=== PATIENT | male | born 1965 | race Hispanic/Latino ===

== ENCOUNTER 2020-11-10 12:07 | Inpatient (IN) | payer MEDICAID, OTHER ==
[~2020-11-10] VITALS: Ht 180.3 cm; Wt 88.6 kg
[2020-11-10] MEDS ORDERED: ALBUTEROL INHALER 90MCG/INH IH ONE (12:37)
[2020-11-10] MEDS ORDERED: DEXAMETHASONE SOD PHOSPHATE 10MG/ML 1ML VIAL ONE (12:37)
[2020-11-10] MEDS ORDERED: LEVOFLOXACIN 750 MG/D5W 150 ML 150 ML ONE (12:37)
[2020-11-10] MEDS ORDERED: ASPIRIN 325 MG TABLET ONE (12:37)
[2020-11-10] MEDS ORDERED: AZITHROMYCIN 250 MG TABLET PO ONE (12:38)
[2020-11-10 12:39] LABS: BASOPHILS % (AUTO) 0.3 % (0.0-5.0); HEMATOCRIT 53.2 % (42-54); LYMPHOCYTES % (AUTO) 5.8 % (21.0-51.0); MEAN CORPUSCULAR HEMOGLOBIN 30.6 pg (27.0-33.0); MEAN CORPUSCULAR HGB CONC 32.5 g/dL (32.0-36.0); MEAN CORPUSCULAR VOLUME 94.2 fL (79-99); MONOCYTES % (AUTO) 4.4 % (3.0-13.0); NEUTROPHILS % (AUTO) 88.6 % (40.0-77.0); PLATELET COUNT (AUTO) 325 K/uL (130-400); RED BLOOD CELL COUNT(AUTO) 5.65 MIL/uL (4.50-6.20); RED CELL DISTRIBUTION WIDTH 12.5 % (11.0-15.5); WHITE BLOOD COUNT (AUTO) 14.4 K/uL (4.8-10.8)
[2020-11-10 12:43] LABS: ABG BASE EXCESS -9.2 mmol/L (-2.0-3.0); ABG HCO3 15.9 mmol/L (21.0-28.0); ABG OXYGEN SATURATION 67.3 % (95.0-99.0); ABG PCO2 33 mmHg (35-48)
[2020-11-10 12:56] LABS: INR 1.12 (0.85-1.15); PROTHROMBIN TIME 11.9 SEC (9.6-11.6)
[2020-11-10 12:57] LABS: PARTIAL THROMBOPLASTIN TIME 24.9 SEC (26.3-35.5)
[2020-11-10 13:08] LABS: ALBUMIN 2.6 g/dL (3.5-5.0); CREATININE 1.3 mg/dL (0.5-1.5); POTASSIUM 4.6 mmol/L (3.5-5.1); TOTAL PROTEIN, SERUM 7.6 g/dL (6.0-8.3)
[2020-11-10 13:29] LABS: B-TYPE NATRIURETIC PEPTIDE 10 pg/mL (0-100)
[2020-11-10] MEDS ORDERED: INSULIN HUMULIN R 100 UNIT/ML 3ML ONE ×3 (13:59→20:33)
[2020-11-10 14:15] LABS: APPEARANCE,URINE Clear (CLEAR); BILIRUBIN,URINE Negative (NEGATIVE); COLOR,URINE Yellow (YELLOW); GLUCOSE, URINE (UA) >=1000 mg/dL (NEGATIVE); KETONES,URINE >=80 mg/dL (NEGATIVE); LEUKOCYTE ESTERASE ,URINE Negative (NEGATIVE); NITRATE,URINE Negative (NEGATIVE); OCCULT BLOOD,URINE Negative (NEGATIVE); PROTEIN,URINE Trace mg/dL (NEGATIVE); UROBILINOGEN,URINE 0.2 mg/dL (0.2-1.0)
[2020-11-10 14:31] LABS: BACTERIA,URINE None Seen /HPF (None Seen); RBC,URINE 0-1 /HPF (0-1); SQUAMOUS EPITHELIAL CELL,UR 0-2 /HPF (0-2); WBC,URINE 0-1 /HPF (0-1)
[2020-11-10 14:32] LABS: MUCUS,URINE Few LPF (None Seen)
[2020-11-10] MEDS ORDERED: FUROSEMIDE 20MG VIAL IV SCH (14:45)
[2020-11-10 15:23] LABS: HEMOGLOBIN A1C 10.6 % (4.0-6.0); THYROID STIMULATING HORMONE 0.97 uIU/mL (0.36-3.74)
[2020-11-10] MEDS ORDERED: INSULIN GLARGINE 100 UNITS/ML 10 ML VIAL SQ ONE (15:30)
[2020-11-10] MEDS ORDERED: FUROSEMIDE 20MG VIAL ONE (15:39)
[2020-11-10] MEDS ORDERED: 0.9%NACL 1000ML 1,000 ML IV ONE (16:15)
[2020-11-10] MEDS ORDERED: PHARMACY COMMUNICATION MISC SCH ×2 (16:15→17:00)
[2020-11-10] MEDS: DOXYCYCLINE 100MG+NS 250ML 250 ML IV SCH (16:15)
[2020-11-10] MEDS ORDERED: INSULIN HUMULIN R 100 UNIT/ML 3ML SQ SCH (16:30)
[2020-11-10] MEDS ORDERED: 0.9%NACL 1000ML 1,000 ML IV SCH (17:00)
[2020-11-10] MEDS ORDERED: VANCOMYCIN 1G/250ML KIT 250 ML IV SCH (17:00)
[2020-11-10] MEDS ORDERED: LACTATED RINGERS 1000ML 1,000 ML IV ONE (17:23)
[2020-11-10] MEDS ORDERED: DOXYCYCLINE 100MG+NS 250ML 250 ML IV ONE (17:23)
[2020-11-10] MEDS ORDERED: VANCOMYCIN PROTOCOL PER PHARMACY IV SCH (17:30)
[2020-11-10] MEDS ORDERED: COMPOUND IV REFRIGERATED 1 EACH IVSOLN MISC PRN (17:30)
[2020-11-10] MEDS: INSULIN HUMULIN R 100 UNIT/ML 3ML SQ SCH (18:00)
[2020-11-10] MEDS ORDERED: VANCOMYCIN 1G 2 GM in 0.9% NACL 500ML IV.SOLN 500 ML IV ONE (18:00)
[2020-11-10 20:33] LABS: CREATININE 1.1 mg/dL (0.5-1.5); POTASSIUM 3.7 mmol/L (3.5-5.1)
[2020-11-11] MEDS: DOXYCYCLINE 100MG+NS 250ML 250 ML IV SCH ×2 (04:15→16:15)
[2020-11-11] MEDS ORDERED: DOXYCYCLINE 100MG+NS 250ML 250 ML IV ONE ×2 (05:00→17:25)
[2020-11-11] MEDS ORDERED: INSULIN HUMULIN R 100 UNIT/ML 3ML ONE ×4 (05:01→17:26)
[2020-11-11] MEDS ORDERED: VANCOMYCIN 1GM+NS 250ML IV SCH (06:00)
[2020-11-11] MEDS: INSULIN HUMULIN R 100 UNIT/ML 3ML SQ SCH ×4 (06:00→18:00)
[2020-11-11 06:38] LABS: CRP QUANTITATIVE 165.7 mg/L (0.00-9.0)
[2020-11-11] MEDS ORDERED: INSULIN HUMULIN R 100 UNIT/ML 3ML SQ SCH (07:30)
[2020-11-11] MEDS ORDERED: RENAL DOSE IV ONE (08:00)
[2020-11-11] MEDS ORDERED: PHARMACY COMMUNICATION MISC SCH ×2 (08:00→10:45)
[2020-11-11] MEDS: FUROSEMIDE 20MG VIAL IV SCH ×2 (08:00→20:00)
[2020-11-11] MEDS ORDERED: INSULIN GLARGINE 100 UNITS/ML 10 ML VIAL SQ SCH (08:00)
[2020-11-11 08:25] LABS: POTASSIUM 3.7 mmol/L (3.5-5.1)
[2020-11-11] MEDS ORDERED: DEXAMETHASONE SOD PHOSPHATE 10MG/ML 1ML VIAL ONE (08:49)
[2020-11-11] MEDS ORDERED: ENOXAPARIN SODIUM 40 MG/0.4 ML SYRINGE SQ ONE (08:50)
[2020-11-11] MEDS ORDERED: FUROSEMIDE 20MG VIAL ONE (08:50)
[2020-11-11] MEDS ORDERED: DEXAMETHASONE SOD PHOSPHATE 4 MG/ML 1ML VIAL IVP SCH (09:00)
[2020-11-11] MEDS ORDERED: ENOXAPARIN SODIUM 40 MG/0.4 ML SYRINGE SQ SCH (09:00)
[2020-11-11 09:31] LABS: ALBUMIN 2.9 g/dL (3.5-5.0); BILIRUBIN,DIRECT 0.2 mg/dL (0.0-0.3); BILIRUBIN,TOTAL 0.6 mg/dL (0.2-1.0); TOTAL PROTEIN, SERUM 7.8 g/dL (6.0-8.3)
[2020-11-11 09:33] LABS: BASOPHILS % (AUTO) 0.3 % (0.0-5.0); HEMATOCRIT 51.2 % (42-54); LYMPHOCYTES % (AUTO) 6.6 % (21.0-51.0); MEAN CORPUSCULAR VOLUME 91.3 fL (79-99); MONOCYTES % (AUTO) 5.4 % (3.0-13.0); NEUTROPHILS % (AUTO) 86.7 % (40.0-77.0); PLATELET COUNT (AUTO) 221 K/uL (130-400); RED BLOOD CELL COUNT(AUTO) 5.61 MIL/uL (4.50-6.20); RED CELL DISTRIBUTION WIDTH 12.2 % (11.0-15.5); WHITE BLOOD COUNT (AUTO) 15.2 K/uL (4.8-10.8)
[2020-11-11] MEDS: PHARMACY COMMUNICATION MISC SCH ×6 (10:45→20:45)
[2020-11-11] MEDS ORDERED: LEVOFLOXACIN 500 MG/D5W 100 ML 100 ML IV SCH (13:00)
[2020-11-11] MEDS ORDERED: COMPOUND IV REFRIGERATED 1 EACH IVSOLN MISC PRN (14:00)
[2020-11-11] MEDS: CEFTRIAXONE 1G VIAL IVP SCH (14:00)
[2020-11-11] MEDS ORDERED: REMDESIVIR (EUA) 520 200 MG in 0.9% NACL 250ML 250 ML IV ONE (14:00)
[2020-11-11] MEDS ORDERED: CEFTRIAXONE 1G VIAL ONE (14:32)
[2020-11-11] MEDS ORDERED: DEXAMETHASONE 10MG/ML 1ML VIAL 6 MG in 0.9%NACL 50ML 50 ML IV SCH (21:00)
[2020-11-11 22:14] VITALS: BP 149/87
[2020-11-11] MEDS: DEXAMETHASONE SOD PHOSPHATE 4 MG/ML 1ML VIAL IVP SCH (22:53)
[2020-11-11 23:00] VITALS: BP 131/85
[2020-11-12] VITALS (36 sets, daily range): BP systolic 114–151; BP diastolic 63–103
[2020-11-12] MEDS: INSULIN HUMULIN R 100 UNIT/ML 3ML SQ SCH ×7 (02:00→17:46)
[2020-11-12 04:08] LABS: ABG BASE EXCESS -1.5 mmol/L (-2.0-3.0); ABG HCO3 23.7 mmol/L (21.0-28.0); ABG PCO2 41 mmHg (35-48)
[2020-11-12 05:57] LABS: BASOPHILS % (AUTO) 0.2 % (0.0-5.0); LYMPHOCYTES % (AUTO) 4.9 % (21.0-51.0); MEAN CORPUSCULAR HEMOGLOBIN 30.4 pg (27.0-33.0); MEAN CORPUSCULAR HGB CONC 33.1 g/dL (32.0-36.0); MEAN CORPUSCULAR VOLUME 91.7 fL (79-99); MONOCYTES % (AUTO) 4.4 % (3.0-13.0); NEUTROPHILS % (AUTO) 89.5 % (40.0-77.0); PLATELET COUNT (AUTO) 203 K/uL (130-400); RED BLOOD CELL COUNT(AUTO) 5.89 MIL/uL (4.50-6.20); RED CELL DISTRIBUTION WIDTH 12.3 % (11.0-15.5); WHITE BLOOD COUNT (AUTO) 17.1 K/uL (4.8-10.8)
[2020-11-12] MEDS: DOXYCYCLINE 100MG+NS 250ML 250 ML IV SCH ×2 (06:22→17:26)
[2020-11-12 06:28] LABS: ALBUMIN 2.7 g/dL (3.5-5.0); BILIRUBIN,TOTAL 0.6 mg/dL (0.2-1.0); CREATININE 0.9 mg/dL (0.5-1.5); CRP QUANTITATIVE 57.5 mg/L (0.00-9.0); POTASSIUM 3.4 mmol/L (3.5-5.1); TOTAL PROTEIN, SERUM 7.4 g/dL (6.0-8.3)
[2020-11-12] MEDS: INSULIN GLARGINE 100 UNITS/ML 10 ML VIAL SQ SCH (09:29)
[2020-11-12] MEDS: DEXAMETHASONE SOD PHOSPHATE 4 MG/ML 1ML VIAL IVP SCH ×2 (09:30→23:19)
[2020-11-12] MEDS ORDERED: PHARMACY COMMUNICATION MISC NR (11:30)
[2020-11-12] MEDS: ENOXAPARIN SODIUM 40 MG/0.4 ML SYRINGE SQ SCH ×2 (11:45→23:19)
[2020-11-12] MEDS ORDERED: HEPARIN 5,000 UNIT VIAL ONE ×2 (13:04→15:34)
[2020-11-12] MEDS: REMDESIVIR (EUA) 520 100 MG in 0.9% NACL 250ML 250 ML IV SCH (15:50)
[2020-11-12] MEDS: CEFTRIAXONE 1G VIAL IVP SCH (16:02)
[2020-11-13] VITALS (38 sets, daily range): BP systolic 102–149; BP diastolic 68–94
[2020-11-13] MEDS: DOXYCYCLINE 100MG+NS 250ML 250 ML IV SCH ×2 (04:38→15:23)
[2020-11-13 04:51] LABS: CRP QUANTITATIVE 32.5 mg/L (0.00-9.0)
[2020-11-13] MEDS: INSULIN HUMULIN R 100 UNIT/ML 3ML SQ SCH ×8 (06:00→23:55)
[2020-11-13 06:35] LABS: BASOPHILS % (AUTO) 0.3 % (0.0-5.0); HEMATOCRIT 51.5 % (42-54); LYMPHOCYTES % (AUTO) 5.2 % (21.0-51.0); MEAN CORPUSCULAR HEMOGLOBIN 30.9 pg (27.0-33.0); MEAN CORPUSCULAR HGB CONC 33.2 g/dL (32.0-36.0); MONOCYTES % (AUTO) 4.7 % (3.0-13.0); PLATELET COUNT (AUTO) 281 K/uL (130-400); RED BLOOD CELL COUNT(AUTO) 5.54 MIL/uL (4.50-6.20); RED CELL DISTRIBUTION WIDTH 12.4 % (11.0-15.5); WHITE BLOOD COUNT (AUTO) 15.9 K/uL (4.8-10.8)
[2020-11-13 07:05] LABS: ALBUMIN 2.6 g/dL (3.5-5.0); BILIRUBIN,TOTAL 0.5 mg/dL (0.2-1.0); CREATININE 0.7 mg/dL (0.5-1.5); TOTAL PROTEIN, SERUM 6.9 g/dL (6.0-8.3)
[2020-11-13] MEDS ORDERED: KCL 20 MEQ ERTAB PO SCH (08:45)
[2020-11-13] MEDS: ENOXAPARIN SODIUM 40 MG/0.4 ML SYRINGE SQ SCH ×2 (09:49→21:23)
[2020-11-13] MEDS: DEXAMETHASONE SOD PHOSPHATE 4 MG/ML 1ML VIAL IVP SCH ×2 (09:49→21:22)
[2020-11-13] MEDS: INSULIN GLARGINE 100 UNITS/ML 10 ML VIAL SQ SCH (09:52)
[2020-11-13] MEDS ORDERED: MAGNESIUM 2GM PREMIX 50ML 50 ML IV PRN (10:15)
[2020-11-13] MEDS: CEFTRIAXONE 1G VIAL IVP SCH (15:23)
[2020-11-13] MEDS: REMDESIVIR (EUA) 520 100 MG in 0.9% NACL 250ML 250 ML IV SCH (15:32)
[2020-11-13] MEDS: REMDESIVIR LABS MISC SCH (21:13)
[2020-11-14] VITALS (26 sets, daily range): BP systolic 116–193; BP diastolic 65–101
[2020-11-14 03:29] LABS: ABG BASE EXCESS 3.7 mmol/L (-2.0-3.0); ABG HCO3 28.9 mmol/L (21.0-28.0); ABG OXYGEN SATURATION 85.8 % (95.0-99.0); ABG PCO2 45 mmHg (35-48)
[2020-11-14] MEDS: DOXYCYCLINE 100MG+NS 250ML 250 ML IV SCH ×2 (04:03→14:16)
[2020-11-14] MEDS: INSULIN HUMULIN R 100 UNIT/ML 3ML SQ SCH ×7 (06:00→23:41)
[2020-11-14 06:03] LABS: BASOPHILS % (AUTO) 0.2 % (0.0-5.0); EOSINOPHILS % (AUTO) 0.1 % (0.0-8.0); HEMATOCRIT 47.9 % (42-54); LYMPHOCYTES % (AUTO) 5.5 % (21.0-51.0); MEAN CORPUSCULAR HEMOGLOBIN 30.4 pg (27.0-33.0); MEAN CORPUSCULAR HGB CONC 33.4 g/dL (32.0-36.0); MEAN CORPUSCULAR VOLUME 91.1 fL (79-99); MONOCYTES % (AUTO) 3.8 % (3.0-13.0); NEUTROPHILS % (AUTO) 89.3 % (40.0-77.0); PLATELET COUNT (AUTO) 159 K/uL (130-400); RED BLOOD CELL COUNT(AUTO) 5.26 MIL/uL (4.50-6.20); WHITE BLOOD COUNT (AUTO) 14.1 K/uL (4.8-10.8)
[2020-11-14] MEDS: REMDESIVIR LABS MISC SCH (06:33)
[2020-11-14 06:34] LABS: ALBUMIN 2.3 g/dL (3.5-5.0); BILIRUBIN,TOTAL 0.6 mg/dL (0.2-1.0); CREATININE 0.5 mg/dL (0.5-1.5); CRP QUANTITATIVE 60.5 mg/L (0.00-9.0); POTASSIUM 3.7 mmol/L (3.5-5.1); TOTAL PROTEIN, SERUM 6.4 g/dL (6.0-8.3)
[2020-11-14] MEDS ORDERED: KCL 20 MEQ ERTAB PO SCH (08:45)
[2020-11-14] MEDS: DEXAMETHASONE SOD PHOSPHATE 4 MG/ML 1ML VIAL IVP SCH ×2 (08:55→20:48)
[2020-11-14] MEDS: ENOXAPARIN SODIUM 40 MG/0.4 ML SYRINGE SQ SCH ×2 (08:55→20:49)
[2020-11-14] MEDS: INSULIN GLARGINE 100 UNITS/ML 10 ML VIAL SQ SCH (08:56)
[2020-11-14] MEDS ORDERED: QUETIAPINE FUMARATE 25 MG TAB PO SCH (13:00)
[2020-11-14] MEDS: CEFTRIAXONE 1G VIAL IVP SCH (14:16)
[2020-11-14 14:23] LABS: INR 1.21 (0.85-1.15)
[2020-11-14] MEDS: REMDESIVIR (EUA) 520 100 MG in 0.9% NACL 250ML 250 ML IV SCH (15:00)
[2020-11-14] MEDS: QUETIAPINE FUMARATE 25 MG TAB PO SCH (20:48)
[2020-11-15] VITALS (23 sets, daily range): BP systolic 128–158; BP diastolic 76–103
[2020-11-15 01:42] LABS: BASOPHILS % (AUTO) 0.3 % (0.0-5.0); LYMPHOCYTES % (AUTO) 2.8 % (21.0-51.0); MEAN CORPUSCULAR HEMOGLOBIN 31.2 pg (27.0-33.0); MEAN CORPUSCULAR HGB CONC 34.3 g/dL (32.0-36.0); MEAN CORPUSCULAR VOLUME 90.9 fL (79-99); MONOCYTES % (AUTO) 2.9 % (3.0-13.0); NEUTROPHILS % (AUTO) 92.3 % (40.0-77.0); PLATELET COUNT (AUTO) 208 K/uL (130-400); RED BLOOD CELL COUNT(AUTO) 5.06 MIL/uL (4.50-6.20); RED CELL DISTRIBUTION WIDTH 12.3 % (11.0-15.5); WHITE BLOOD COUNT (AUTO) 14.7 K/uL (4.8-10.8)
[2020-11-15 01:52] LABS: CREATININE 0.6 mg/dL (0.5-1.5); POTASSIUM 3.5 mmol/L (3.5-5.1)
[2020-11-15 01:54] LABS: INR 1.21 (0.85-1.15)
[2020-11-15 01:55] LABS: PARTIAL THROMBOPLASTIN TIME 29.1 SEC (26.3-35.5)
[2020-11-15 01:56] LABS: ALBUMIN 2.4 g/dL (3.5-5.0); BILIRUBIN,TOTAL 0.6 mg/dL (0.2-1.0); MAGNESIUM 1.5 mg/dL (1.80-2.40); PHOSPHORUS 3.6 mg/dL (2.5-4.9); TOTAL PROTEIN, SERUM 6.7 g/dL (6.0-8.3)
[2020-11-15] MEDS: DOXYCYCLINE 100MG+NS 250ML 250 ML IV SCH ×2 (03:19→16:38)
[2020-11-15] MEDS: INSULIN HUMULIN R 100 UNIT/ML 3ML SQ SCH ×8 (06:00→23:41)
[2020-11-15] MEDS: REMDESIVIR LABS MISC SCH (06:07)
[2020-11-15 06:20] LABS: BASOPHILS % (AUTO) 0.2 % (0.0-5.0); EOSINOPHILS % (AUTO) 0.1 % (0.0-8.0); HEMATOCRIT 49.2 % (42-54); LYMPHOCYTES % (AUTO) 4.3 % (21.0-51.0); MEAN CORPUSCULAR HEMOGLOBIN 30.9 pg (27.0-33.0); MEAN CORPUSCULAR HGB CONC 33.3 g/dL (32.0-36.0); MEAN CORPUSCULAR VOLUME 92.8 fL (79-99); MONOCYTES % (AUTO) 3.7 % (3.0-13.0); NEUTROPHILS % (AUTO) 90.1 % (40.0-77.0); PLATELET COUNT (AUTO) 164 K/uL (130-400); RED CELL DISTRIBUTION WIDTH 12.3 % (11.0-15.5)
[2020-11-15 06:38] LABS: ALBUMIN 2.5 g/dL (3.5-5.0); BILIRUBIN,TOTAL 0.8 mg/dL (0.2-1.0); CREATININE 0.7 mg/dL (0.5-1.5); POTASSIUM 4.2 mmol/L (3.5-5.1); TOTAL PROTEIN, SERUM 7.1 g/dL (6.0-8.3)
[2020-11-15 06:48] LABS: CRP QUANTITATIVE 168.9 mg/L (0.00-9.0)
[2020-11-15] MEDS: QUETIAPINE FUMARATE 25 MG TAB PO SCH ×2 (08:16→21:05)
[2020-11-15] MEDS: DEXAMETHASONE SOD PHOSPHATE 4 MG/ML 1ML VIAL IVP SCH ×2 (08:17→21:06)
[2020-11-15] MEDS: INSULIN GLARGINE 100 UNITS/ML 10 ML VIAL SQ SCH (08:19)
[2020-11-15] MEDS: ENOXAPARIN SODIUM 40 MG/0.4 ML SYRINGE SQ SCH ×2 (08:20→21:05)
[2020-11-15] MEDS: REMDESIVIR (EUA) 520 100 MG in 0.9% NACL 250ML 250 ML IV SCH (13:57)
[2020-11-15] MEDS: CEFTRIAXONE 1G VIAL IVP SCH (14:01)
[2020-11-15 23:42] LABS: ABG BASE EXCESS 3.3 mmol/L (-2.0-3.0); ABG HCO3 28.1 mmol/L (21.0-28.0); ABG OXYGEN SATURATION 87.5 % (95.0-99.0); ABG PCO2 43 mmHg (35-48)
[2020-11-16] VITALS (30 sets, daily range): BP systolic 70–168; BP diastolic 25–101
[2020-11-16] MEDS: DOXYCYCLINE 100MG+NS 250ML 250 ML IV SCH ×2 (03:29→16:15)
[2020-11-16] MEDS: INSULIN HUMULIN R 100 UNIT/ML 3ML SQ SCH ×6 (06:00→18:02)
[2020-11-16] MEDS: REMDESIVIR LABS MISC SCH (06:13)
[2020-11-16 06:25] LABS: BASOPHILS % (AUTO) 0.2 % (0.0-5.0); EOSINOPHILS % (AUTO) 0.1 % (0.0-8.0); HEMATOCRIT 52.3 % (42-54); LYMPHOCYTES % (AUTO) 2.6 % (21.0-51.0); MEAN CORPUSCULAR HEMOGLOBIN 30.2 pg (27.0-33.0); MEAN CORPUSCULAR HGB CONC 32.7 g/dL (32.0-36.0); MEAN CORPUSCULAR VOLUME 92.2 fL (79-99); MONOCYTES % (AUTO) 3.8 % (3.0-13.0); NEUTROPHILS % (AUTO) 91.1 % (40.0-77.0); PLATELET COUNT (AUTO) 144 K/uL (130-400); RED BLOOD CELL COUNT(AUTO) 5.67 MIL/uL (4.50-6.20); RED CELL DISTRIBUTION WIDTH 12.5 % (11.0-15.5); WHITE BLOOD COUNT (AUTO) 16.1 K/uL (4.8-10.8)
[2020-11-16 06:41] LABS: ALBUMIN 2.4 g/dL (3.5-5.0); BILIRUBIN,TOTAL 0.8 mg/dL (0.2-1.0); CREATININE 0.6 mg/dL (0.5-1.5); POTASSIUM 3.6 mmol/L (3.5-5.1)
[2020-11-16] MEDS: INSULIN GLARGINE 100 UNITS/ML 10 ML VIAL SQ SCH (08:00)
[2020-11-16] MEDS: QUETIAPINE FUMARATE 25 MG TAB PO SCH ×2 (08:42→20:22)
[2020-11-16] MEDS: DEXAMETHASONE SOD PHOSPHATE 4 MG/ML 1ML VIAL IVP SCH ×2 (08:43→20:31)
[2020-11-16] MEDS: ENOXAPARIN SODIUM 40 MG/0.4 ML SYRINGE SQ SCH ×2 (08:43→20:32)
[2020-11-16] MEDS: DEXMEDETOMIDINE HCL 400 MCG in 0.9%NACL 100ML 100 ML IV SCH ×3 (09:00→20:12)
[2020-11-16] MEDS: CEFTRIAXONE 1G VIAL IVP SCH (14:11)
[2020-11-16] MEDS ORDERED: COMPOUND PO MISCELLANEOUS 1 EACH MISC MISC PRN (18:45)
[2020-11-16] MEDS: NOREPINEPHRIN 4MG/NS 250ML 250 ML IV PRN (21:09)
[2020-11-17] VITALS (24 sets, daily range): BP systolic 84–139; BP diastolic 37–88
[2020-11-17] MEDS: DOXYCYCLINE 100MG+NS 250ML 250 ML IV SCH ×2 (03:36→15:42)
[2020-11-17 04:12] LABS: ABG BASE EXCESS 1.7 mmol/L (-2.0-3.0); ABG HCO3 25.9 mmol/L (21.0-28.0); ABG OXYGEN SATURATION 95.4 % (95.0-99.0); ABG PCO2 39 mmHg (35-48)
[2020-11-17] MEDS: DEXMEDETOMIDINE HCL 400 MCG in 0.9%NACL 100ML 100 ML IV SCH ×2 (05:57→20:22)
[2020-11-17] MEDS: ACETYLCYSTEINE 10% 100MG/ML 4ML VIAL IH SCH ×4 (06:00→18:00)
[2020-11-17] MEDS: INSULIN HUMULIN R 100 UNIT/ML 3ML SQ SCH ×7 (06:00→18:00)
[2020-11-17] MEDS: ALBUTEROL 0.042% 1.25MG/3ML IH SCH ×4 (06:00→18:00)
[2020-11-17 06:04] LABS: BASOPHILS % (AUTO) 0.3 % (0.0-5.0); HEMATOCRIT 50.8 % (42-54); LYMPHOCYTES % (AUTO) 2.8 % (21.0-51.0); MEAN CORPUSCULAR HEMOGLOBIN 30.9 pg (27.0-33.0); MEAN CORPUSCULAR HGB CONC 33.3 g/dL (32.0-36.0); MEAN CORPUSCULAR VOLUME 92.9 fL (79-99); MONOCYTES % (AUTO) 2.4 % (3.0-13.0); NEUTROPHILS % (AUTO) 92.6 % (40.0-77.0); PLATELET COUNT (AUTO) 148 K/uL (130-400); RED BLOOD CELL COUNT(AUTO) 5.47 MIL/uL (4.50-6.20); RED CELL DISTRIBUTION WIDTH 12.4 % (11.0-15.5); WHITE BLOOD COUNT (AUTO) 18.3 K/uL (4.8-10.8)
[2020-11-17 06:32] LABS: ALBUMIN 2.1 g/dL (3.5-5.0); BILIRUBIN,TOTAL 0.6 mg/dL (0.2-1.0); CREATININE 0.7 mg/dL (0.5-1.5); POTASSIUM 3.9 mmol/L (3.5-5.1); TOTAL PROTEIN, SERUM 6.6 g/dL (6.0-8.3)
[2020-11-17 06:43] LABS: CRP QUANTITATIVE 133.8 mg/L (0.00-9.0)
[2020-11-17] MEDS: INSULIN GLARGINE 100 UNITS/ML 10 ML VIAL SQ SCH (07:44)
[2020-11-17] MEDS: QUETIAPINE FUMARATE 25 MG TAB PO SCH ×2 (09:21→20:25)
[2020-11-17] MEDS: DEXAMETHASONE SOD PHOSPHATE 4 MG/ML 1ML VIAL IVP SCH ×2 (09:21→20:25)
[2020-11-17] MEDS: ENOXAPARIN SODIUM 40 MG/0.4 ML SYRINGE SQ SCH ×2 (09:22→20:26)
[2020-11-17] MEDS: NOREPINEPHRIN 4MG/NS 250ML 250 ML IV PRN ×2 (11:37→20:27)
[2020-11-17] MEDS: CEFTRIAXONE 1G VIAL IVP SCH (13:58)
[2020-11-18] VITALS (24 sets, daily range): BP systolic 96–136; BP diastolic 47–86
[2020-11-18] MEDS: DEXMEDETOMIDINE HCL 400 MCG in 0.9%NACL 100ML 100 ML IV SCH ×3 (03:07→19:53)
[2020-11-18] MEDS: DOXYCYCLINE 100MG+NS 250ML 250 ML IV SCH ×2 (03:19→15:58)
[2020-11-18 04:44] LABS: BASOPHILS % (AUTO) 0.3 % (0.0-5.0); HEMATOCRIT 49.7 % (42-54); LYMPHOCYTES % (AUTO) 3.3 % (21.0-51.0); MEAN CORPUSCULAR HEMOGLOBIN 30.9 pg (27.0-33.0); MEAN CORPUSCULAR VOLUME 93.6 fL (79-99); MONOCYTES % (AUTO) 3.8 % (3.0-13.0); NEUTROPHILS % (AUTO) 91.5 % (40.0-77.0); PLATELET COUNT (AUTO) 174 K/uL (130-400); RED BLOOD CELL COUNT(AUTO) 5.31 MIL/uL (4.50-6.20); RED CELL DISTRIBUTION WIDTH 12.7 % (11.0-15.5); WHITE BLOOD COUNT (AUTO) 19.2 K/uL (4.8-10.8)
[2020-11-18 05:03] LABS: CREATININE 0.7 mg/dL (0.5-1.5); CRP QUANTITATIVE 52.4 mg/L (0.00-9.0); MAGNESIUM 2.4 mg/dL (1.80-2.40); POTASSIUM 4.6 mmol/L (3.5-5.1)
[2020-11-18] MEDS: ACETYLCYSTEINE 10% 100MG/ML 4ML VIAL IH SCH ×5 (06:00→23:34)
[2020-11-18] MEDS: ALBUTEROL 0.042% 1.25MG/3ML IH SCH ×5 (06:00→23:34)
[2020-11-18] MEDS: INSULIN HUMULIN R 100 UNIT/ML 3ML SQ SCH ×8 (06:10→23:34)
[2020-11-18 07:41] LABS: ABG BASE EXCESS 1.4 mmol/L (-2.0-3.0); ABG HCO3 26.3 mmol/L (21.0-28.0); ABG OXYGEN SATURATION 95.3 % (95.0-99.0); ABG PCO2 43 mmHg (35-48)
[2020-11-18] MEDS: INSULIN GLARGINE 100 UNITS/ML 10 ML VIAL SQ SCH (08:23)
[2020-11-18] MEDS: QUETIAPINE FUMARATE 25 MG TAB PO SCH ×2 (08:52→20:35)
[2020-11-18] MEDS: DEXAMETHASONE SOD PHOSPHATE 4 MG/ML 1ML VIAL IVP SCH ×2 (08:52→20:35)
[2020-11-18] MEDS: ENOXAPARIN SODIUM 40 MG/0.4 ML SYRINGE SQ SCH ×2 (08:53→20:36)
[2020-11-18] MEDS: NOREPINEPHRIN 4MG/NS 250ML 250 ML IV PRN (10:58)
[2020-11-18 13:28] LABS: CREATININE 0.7 mg/dL (0.5-1.5); MAGNESIUM 2.2 mg/dL (1.80-2.40)
[2020-11-18] MEDS: CEFTRIAXONE 1G VIAL IVP SCH (14:50)
[2020-11-18] MEDS ORDERED: DEXTROSE 50%-WATER 50 ML DISP.SYRIN IV ONE (23:37)
[2020-11-18] MEDS ORDERED: DEXTROSE 50%-WATER 25 GM/50 ML VIAL IV SCH (23:45)
[2020-11-19] VITALS (39 sets, daily range): BP systolic 87–142; BP diastolic 47–97
[2020-11-19] MEDS: DEXTROSE 50%-WATER 25 GM/50 ML VIAL IV SCH ×2 (00:11→23:45)
[2020-11-19] MEDS: NOREPINEPHRIN 4MG/NS 250ML 250 ML IV PRN ×2 (02:31→22:49)
[2020-11-19] MEDS: DOXYCYCLINE 100MG+NS 250ML 250 ML IV SCH ×2 (03:26→16:31)
[2020-11-19 03:40] LABS: BASOPHILS % (AUTO) 0.2 % (0.0-5.0); HEMATOCRIT 50.6 % (42-54); LYMPHOCYTES % (AUTO) 4.8 % (21.0-51.0); MEAN CORPUSCULAR HEMOGLOBIN 30.1 pg (27.0-33.0); MEAN CORPUSCULAR HGB CONC 32.4 g/dL (32.0-36.0); MEAN CORPUSCULAR VOLUME 92.8 fL (79-99); MONOCYTES % (AUTO) 2.2 % (3.0-13.0); NEUTROPHILS % (AUTO) 91.6 % (40.0-77.0); PLATELET COUNT (AUTO) 146 K/uL (130-400); RED BLOOD CELL COUNT(AUTO) 5.45 MIL/uL (4.50-6.20); RED CELL DISTRIBUTION WIDTH 12.8 % (11.0-15.5); WHITE BLOOD COUNT (AUTO) 17.8 K/uL (4.8-10.8)
[2020-11-19 03:54] LABS: CREATININE 0.7 mg/dL (0.5-1.5)
[2020-11-19] MEDS: DEXMEDETOMIDINE HCL 400 MCG in 0.9%NACL 100ML 100 ML IV SCH ×2 (04:22→22:51)
[2020-11-19] MEDS: ALBUTEROL 0.042% 1.25MG/3ML IH SCH ×3 (05:06→18:05)
[2020-11-19] MEDS: INSULIN HUMULIN R 100 UNIT/ML 3ML SQ SCH ×6 (05:06→18:00)
[2020-11-19] MEDS: ACETYLCYSTEINE 10% 100MG/ML 4ML VIAL IH SCH ×3 (05:06→16:44)
[2020-11-19 07:29] LABS: ABG BASE EXCESS 2.3 mmol/L (-2.0-3.0); ABG HCO3 26.7 mmol/L (21.0-28.0); ABG OXYGEN SATURATION 89.2 % (95.0-99.0); ABG PCO2 41 mmHg (35-48)
[2020-11-19] MEDS: QUETIAPINE FUMARATE 25 MG TAB PO SCH ×2 (08:22→22:48)
[2020-11-19] MEDS: ENOXAPARIN SODIUM 40 MG/0.4 ML SYRINGE SQ SCH ×2 (08:23→22:48)
[2020-11-19] MEDS: DEXAMETHASONE SOD PHOSPHATE 4 MG/ML 1ML VIAL IVP SCH ×2 (08:23→21:00)
[2020-11-19] MEDS: INSULIN GLARGINE 100 UNITS/ML 10 ML VIAL SQ SCH (12:11)
[2020-11-19 13:33] LABS: CREATININE 0.7 mg/dL (0.5-1.5)
[2020-11-19] MEDS: CEFTRIAXONE 1G VIAL IVP SCH (14:00)
[2020-11-19] MEDS ORDERED: INSULIN GLARGINE 100 UNITS/ML 10 ML VIAL SQ SCH (15:00)
[2020-11-19] MEDS ORDERED: DEXTROSE 50%-WATER 50 ML DISP.SYRIN IV ONE (23:58)
[2020-11-20] VITALS (46 sets, daily range): BP systolic 80–132; BP diastolic 49–85
[2020-11-20] MEDS: DOXYCYCLINE 100MG+NS 250ML 250 ML IV SCH ×2 (04:53→16:38)
[2020-11-20 05:18] LABS: ABG BASE EXCESS 6.4 mmol/L (-2.0-3.0); ABG HCO3 31.8 mmol/L (21.0-28.0); ABG OXYGEN SATURATION 94.3 % (95.0-99.0); ABG PCO2 49 mmHg (35-48)
[2020-11-20 05:53] LABS: BASOPHILS % (AUTO) 0.2 % (0.0-5.0); EOSINOPHILS % (AUTO) 0.8 % (0.0-8.0); HEMATOCRIT 48.3 % (42-54); LYMPHOCYTES % (AUTO) 6.2 % (21.0-51.0); MEAN CORPUSCULAR HEMOGLOBIN 30.3 pg (27.0-33.0); MEAN CORPUSCULAR HGB CONC 32.1 g/dL (32.0-36.0); MEAN CORPUSCULAR VOLUME 94.3 fL (79-99); MONOCYTES % (AUTO) 1.7 % (3.0-13.0); NEUTROPHILS % (AUTO) 89.7 % (40.0-77.0); PLATELET COUNT (AUTO) 160 K/uL (130-400); RED BLOOD CELL COUNT(AUTO) 5.12 MIL/uL (4.50-6.20); RED CELL DISTRIBUTION WIDTH 12.7 % (11.0-15.5); WHITE BLOOD COUNT (AUTO) 15.4 K/uL (4.8-10.8)
[2020-11-20] MEDS: ACETYLCYSTEINE 10% 100MG/ML 4ML VIAL IH SCH ×4 (06:00→16:39)
[2020-11-20] MEDS: INSULIN HUMULIN R 100 UNIT/ML 3ML SQ SCH ×6 (06:00→21:00)
[2020-11-20] MEDS: ALBUTEROL 0.042% 1.25MG/3ML IH SCH ×4 (06:00→18:22)
[2020-11-20 06:20] LABS: ALBUMIN 1.9 g/dL (3.5-5.0); BILIRUBIN,TOTAL 0.5 mg/dL (0.2-1.0); CREATININE 0.6 mg/dL (0.5-1.5); CRP QUANTITATIVE 26.6 mg/L (0.00-9.0); POTASSIUM 3.4 mmol/L (3.5-5.1); TOTAL PROTEIN, SERUM 5.8 g/dL (6.0-8.3)
[2020-11-20] MEDS: DEXMEDETOMIDINE HCL 400 MCG in 0.9%NACL 100ML 100 ML IV SCH ×4 (08:00→22:01)
[2020-11-20] MEDS: DEXAMETHASONE SOD PHOSPHATE 4 MG/ML 1ML VIAL IVP SCH ×2 (08:30→21:31)
[2020-11-20] MEDS: QUETIAPINE FUMARATE 25 MG TAB PO SCH ×2 (08:30→21:30)
[2020-11-20] MEDS: ENOXAPARIN SODIUM 40 MG/0.4 ML SYRINGE SQ SCH ×2 (08:31→21:31)
[2020-11-20] MEDS ORDERED: POTASSIUM CHLORIDE 10% ELIXIR 20 MEQ/15 ML UDCUP NG SCH (08:45)
[2020-11-20] MEDS ORDERED: ALBUMIN (HUMAN) 25% 50 ML IV SCH (13:45)
[2020-11-20] MEDS: FUROSEMIDE 20MG VIAL IV SCH (14:10)
[2020-11-20] MEDS: CEFTRIAXONE 1G VIAL IVP SCH (14:11)
[2020-11-20] MEDS ORDERED: PHARMACY COMMUNICATION MISC SCH (14:15)
[2020-11-20] MEDS: NOREPINEPHRIN 4MG/NS 250ML 250 ML IV PRN (21:51)
[2020-11-20] MEDS: DEXTROSE 50%-WATER 25 GM/50 ML VIAL IV SCH (23:45)
[2020-11-21] VITALS (48 sets, daily range): BP systolic 75–139; BP diastolic 40–92
[2020-11-21] MEDS: FUROSEMIDE 20MG VIAL IV SCH ×2 (01:56→14:38)
[2020-11-21] MEDS: DEXMEDETOMIDINE HCL 400 MCG in 0.9%NACL 100ML 100 ML IV SCH ×3 (02:44→17:58)
[2020-11-21] MEDS: DOXYCYCLINE 100MG+NS 250ML 250 ML IV SCH (05:52)
[2020-11-21 05:58] LABS: BASOPHILS % (AUTO) 0.2 % (0.0-5.0); HEMATOCRIT 47.5 % (42-54); LYMPHOCYTES % (AUTO) 3.4 % (21.0-51.0); MEAN CORPUSCULAR HEMOGLOBIN 30.6 pg (27.0-33.0); MEAN CORPUSCULAR HGB CONC 32.4 g/dL (32.0-36.0); MEAN CORPUSCULAR VOLUME 94.4 fL (79-99); MONOCYTES % (AUTO) 1.3 % (3.0-13.0); PLATELET COUNT (AUTO) 191 K/uL (130-400); RED BLOOD CELL COUNT(AUTO) 5.03 MIL/uL (4.50-6.20); RED CELL DISTRIBUTION WIDTH 12.4 % (11.0-15.5); WHITE BLOOD COUNT (AUTO) 16.3 K/uL (4.8-10.8)
[2020-11-21 06:37] LABS: BILIRUBIN,TOTAL 0.7 mg/dL (0.2-1.0); CREATININE 0.7 mg/dL (0.5-1.5); CRP QUANTITATIVE 118.2 mg/L (0.00-9.0); MAGNESIUM 2.2 mg/dL (1.80-2.40); POTASSIUM 4.5 mmol/L (3.5-5.1); TOTAL PROTEIN, SERUM 6.2 g/dL (6.0-8.3)
[2020-11-21] MEDS: INSULIN HUMULIN R 100 UNIT/ML 3ML SQ SCH ×8 (06:39→22:23)
[2020-11-21 06:58] LABS: ABG BASE EXCESS 4.5 mmol/L (-2.0-3.0); ABG HCO3 29.4 mmol/L (21.0-28.0); ABG PCO2 45 mmHg (35-48)
[2020-11-21] MEDS: QUETIAPINE FUMARATE 25 MG TAB PO SCH ×2 (08:43→22:16)
[2020-11-21] MEDS: DEXAMETHASONE SOD PHOSPHATE 4 MG/ML 1ML VIAL IVP SCH ×2 (08:43→22:16)
[2020-11-21] MEDS: INSULIN GLARGINE 100 UNITS/ML 10 ML VIAL SQ SCH (08:43)
[2020-11-21] MEDS: ENOXAPARIN SODIUM 40 MG/0.4 ML SYRINGE SQ SCH ×2 (08:44→22:17)
[2020-11-21] MEDS ORDERED: PHARMACY COMMUNICATION MISC SCH (10:15)
[2020-11-21] MEDS: BARICITINIB (EUA) 2 MG TABLET PO SCH (14:38)
[2020-11-21] MEDS: NOREPINEPHRIN 4MG/NS 250ML 250 ML IV PRN ×2 (15:04→23:01)
[2020-11-21] MEDS: DEXTROSE 50%-WATER 25 GM/50 ML VIAL IV SCH (20:10)
[2020-11-22] VITALS (64 sets, daily range): BP systolic 101–160; BP diastolic 43–88
[2020-11-22] MEDS: FUROSEMIDE 20MG VIAL IV SCH ×2 (00:40→13:31)
[2020-11-22] MEDS: INSULIN HUMULIN R 100 UNIT/ML 3ML SQ SCH ×8 (00:41→21:08)
[2020-11-22 05:33] LABS: BASOPHILS % (AUTO) 0.2 % (0.0-5.0); HEMATOCRIT 48.6 % (42-54); LYMPHOCYTES % (AUTO) 3.2 % (21.0-51.0); MEAN CORPUSCULAR HEMOGLOBIN 30.4 pg (27.0-33.0); MEAN CORPUSCULAR HGB CONC 33.5 g/dL (32.0-36.0); MEAN CORPUSCULAR VOLUME 90.7 fL (79-99); MONOCYTES % (AUTO) 1.5 % (3.0-13.0); NEUTROPHILS % (AUTO) 93.2 % (40.0-77.0); PLATELET COUNT (AUTO) 248 K/uL (130-400); RED BLOOD CELL COUNT(AUTO) 5.36 MIL/uL (4.50-6.20); RED CELL DISTRIBUTION WIDTH 12.2 % (11.0-15.5)
[2020-11-22 05:44] LABS: ABG BASE EXCESS 7.6 mmol/L (-2.0-3.0); ABG HCO3 32.2 mmol/L (21.0-28.0); ABG OXYGEN SATURATION 88.9 % (95.0-99.0); ABG PCO2 45 mmHg (35-48)
[2020-11-22 06:13] LABS: ALBUMIN 2.2 g/dL (3.5-5.0); BILIRUBIN,TOTAL 0.7 mg/dL (0.2-1.0); CREATININE 0.7 mg/dL (0.5-1.5); CRP QUANTITATIVE 45.3 mg/L (0.00-9.0); MAGNESIUM 2.3 mg/dL (1.80-2.40); POTASSIUM 4.4 mmol/L (3.5-5.1); TOTAL PROTEIN, SERUM 6.8 g/dL (6.0-8.3)
[2020-11-22] MEDS: NOREPINEPHRIN 4MG/NS 250ML 250 ML IV PRN ×3 (06:26→21:02)
[2020-11-22] MEDS ORDERED: INSULIN GLARGINE 100 UNITS/ML 10 ML VIAL SQ SCH (08:00)
[2020-11-22] MEDS: DEXAMETHASONE SOD PHOSPHATE 4 MG/ML 1ML VIAL IVP SCH ×2 (10:33→20:59)
[2020-11-22] MEDS: ENOXAPARIN SODIUM 40 MG/0.4 ML SYRINGE SQ SCH ×2 (10:33→21:00)
[2020-11-22] MEDS: QUETIAPINE FUMARATE 25 MG TAB PO SCH (10:33)
[2020-11-22] MEDS: BARICITINIB (EUA) 2 MG TABLET PO SCH (11:20)
[2020-11-22] MEDS: DEXMEDETOMIDINE HCL 400 MCG in 0.9%NACL 100ML 100 ML IV SCH (11:24)
[2020-11-22] MEDS: DEXTROSE 50%-WATER 25 GM/50 ML VIAL IV SCH (20:26)
[2020-11-22] MEDS: INSULIN GLARGINE 100 UNITS/ML 10 ML VIAL SQ SCH (21:01)
[2020-11-23] VITALS (41 sets, daily range): BP systolic 101–147; BP diastolic 53–98
[2020-11-23] MEDS: INSULIN HUMULIN R 100 UNIT/ML 3ML SQ SCH ×9 (01:24→23:00)
[2020-11-23] MEDS: DEXMEDETOMIDINE HCL 400 MCG in 0.9%NACL 100ML 100 ML IV SCH ×3 (01:24→21:39)
[2020-11-23] MEDS: FUROSEMIDE 20MG VIAL IV SCH ×2 (01:26→13:45)
[2020-11-23 04:35] LABS: BASOPHILS % (AUTO) 0.3 % (0.0-5.0); HEMATOCRIT 49.9 % (42-54); LYMPHOCYTES % (AUTO) 4.2 % (21.0-51.0); MEAN CORPUSCULAR HEMOGLOBIN 30.8 pg (27.0-33.0); MEAN CORPUSCULAR HGB CONC 33.3 g/dL (32.0-36.0); MEAN CORPUSCULAR VOLUME 92.6 fL (79-99); MONOCYTES % (AUTO) 2.9 % (3.0-13.0); PLATELET COUNT (AUTO) 179 K/uL (130-400); RED BLOOD CELL COUNT(AUTO) 5.39 MIL/uL (4.50-6.20); RED CELL DISTRIBUTION WIDTH 12.4 % (11.0-15.5); WHITE BLOOD COUNT (AUTO) 22.2 K/uL (4.8-10.8)
[2020-11-23 05:15] LABS: CREATININE 0.7 mg/dL (0.5-1.5); CRP QUANTITATIVE 15.2 mg/L (0.00-9.0); MAGNESIUM 2.1 mg/dL (1.80-2.40); PHOSPHORUS 3.9 mg/dL (2.5-4.9); POTASSIUM 3.5 mmol/L (3.5-5.1)
[2020-11-23 05:40] LABS: ERYTHROCYTE SEDIMENTATION RATE 9 MM/HR (0-20)
[2020-11-23] MEDS: DEXAMETHASONE SOD PHOSPHATE 4 MG/ML 1ML VIAL IVP SCH (08:43)
[2020-11-23] MEDS: BARICITINIB (EUA) 2 MG TABLET PO SCH (08:43)
[2020-11-23] MEDS: ENOXAPARIN SODIUM 40 MG/0.4 ML SYRINGE SQ SCH ×2 (08:44→21:38)
[2020-11-23] MEDS: INSULIN GLARGINE 100 UNITS/ML 10 ML VIAL SQ SCH ×2 (08:46→21:00)
[2020-11-23] MEDS ORDERED: DEXTROSE 50%-WATER 50 ML DISP.SYRIN IV ONE (21:16)
[2020-11-23] MEDS: DEXTROSE 50%-WATER 25 GM/50 ML VIAL IV SCH (21:30)
[2020-11-24] VITALS (36 sets, daily range): BP systolic 89–184; BP diastolic 51–85
[2020-11-24] MEDS: INSULIN HUMULIN R 100 UNIT/ML 3ML SQ SCH ×6 (01:00→21:02)
[2020-11-24] MEDS: FUROSEMIDE 20MG VIAL IV SCH ×2 (02:30→13:28)
[2020-11-24] MEDS: DEXMEDETOMIDINE HCL 400 MCG in 0.9%NACL 100ML 100 ML IV SCH ×2 (03:32→14:33)
[2020-11-24] MEDS ORDERED: DEXTROSE 50%-WATER 50 ML DISP.SYRIN IV ONE ×2 (03:42→03:43)
[2020-11-24 05:30] LABS: BASOPHILS % (AUTO) 0.2 % (0.0-5.0); EOSINOPHILS % (AUTO) 0.2 % (0.0-8.0); HEMATOCRIT 49.2 % (42-54); LYMPHOCYTES % (AUTO) 3.7 % (21.0-51.0); MEAN CORPUSCULAR HEMOGLOBIN 31.1 pg (27.0-33.0); MEAN CORPUSCULAR HGB CONC 33.3 g/dL (32.0-36.0); MEAN CORPUSCULAR VOLUME 93.2 fL (79-99); MONOCYTES % (AUTO) 2.8 % (3.0-13.0); NEUTROPHILS % (AUTO) 91.9 % (40.0-77.0); PLATELET COUNT (AUTO) 165 K/uL (130-400); RED BLOOD CELL COUNT(AUTO) 5.28 MIL/uL (4.50-6.20); RED CELL DISTRIBUTION WIDTH 12.6 % (11.0-15.5); WHITE BLOOD COUNT (AUTO) 24.1 K/uL (4.8-10.8)
[2020-11-24 05:54] LABS: ALBUMIN 2.4 g/dL (3.5-5.0); BILIRUBIN,TOTAL 0.6 mg/dL (0.2-1.0); CREATININE 0.6 mg/dL (0.5-1.5); CRP QUANTITATIVE 9.9 mg/L (0.00-9.0); POTASSIUM 3.1 mmol/L (3.5-5.1); TOTAL PROTEIN, SERUM 6.6 g/dL (6.0-8.3)
[2020-11-24] MEDS ORDERED: LIDOCAINE HCL-MPF 1% 2ML VIAL IV PRN (08:45)
[2020-11-24] MEDS: ENOXAPARIN SODIUM 40 MG/0.4 ML SYRINGE SQ SCH ×2 (08:51→20:59)
[2020-11-24] MEDS: DEXAMETHASONE SOD PHOSPHATE 4 MG/ML 1ML VIAL IVP SCH (08:51)
[2020-11-24] MEDS: BARICITINIB (EUA) 2 MG TABLET PO SCH (08:54)
[2020-11-24] MEDS ORDERED: FUROSEMIDE 40 MG TABLET PO SCH (09:00)
[2020-11-24] MEDS: POTASSIUM CHLORIDE 20MEQ/100ML 100 ML IV PRN ×2 (12:09→12:46)
[2020-11-24] MEDS: DEXMEDETOMIDINE HCL 400 MCG in 0.9%NACL 100ML 96 ML IV PRN (21:19)
[2020-11-24] MEDS: DEXTROSE 50%-WATER 25 GM/50 ML VIAL IV SCH (23:45)
[2020-11-25] VITALS (24 sets, daily range): BP systolic 98–176; BP diastolic 51–90
[2020-11-25] MEDS ORDERED: DEXMEDETOMIDINE HCL 200 MCG/2 ML VIAL IV ONE (01:48)
[2020-11-25 05:37] LABS: BASOPHILS % (AUTO) 0.2 % (0.0-5.0); EOSINOPHILS % (AUTO) 1.4 % (0.0-8.0); HEMATOCRIT 47.2 % (42-54); LYMPHOCYTES % (AUTO) 4.8 % (21.0-51.0); MEAN CORPUSCULAR HEMOGLOBIN 30.6 pg (27.0-33.0); MEAN CORPUSCULAR HGB CONC 32.2 g/dL (32.0-36.0); MEAN CORPUSCULAR VOLUME 95.2 fL (79-99); MONOCYTES % (AUTO) 2.3 % (3.0-13.0); PLATELET COUNT (AUTO) 230 K/uL (130-400); RED BLOOD CELL COUNT(AUTO) 4.96 MIL/uL (4.50-6.20); RED CELL DISTRIBUTION WIDTH 12.8 % (11.0-15.5); WHITE BLOOD COUNT (AUTO) 17.4 K/uL (4.8-10.8)
[2020-11-25 05:55] LABS: CREATININE 0.6 mg/dL (0.5-1.5); POTASSIUM 4.2 mmol/L (3.5-5.1)
[2020-11-25] MEDS: INSULIN HUMULIN R 100 UNIT/ML 3ML SQ SCH ×4 (07:30→21:46)
[2020-11-25] MEDS: BARICITINIB (EUA) 2 MG TABLET PO SCH (08:41)
[2020-11-25] MEDS: DEXAMETHASONE SOD PHOSPHATE 4 MG/ML 1ML VIAL IVP SCH (08:41)
[2020-11-25] MEDS: ENOXAPARIN SODIUM 40 MG/0.4 ML SYRINGE SQ SCH ×2 (08:42→21:45)
[2020-11-25] MEDS: DEXMEDETOMIDINE HCL 400 MCG in 0.9%NACL 100ML 96 ML IV PRN ×3 (10:04→22:43)
[2020-11-25] MEDS: DOCUSATE SODIUM 100 MG CAP PO SCH ×2 (16:45→17:16)
[2020-11-25] MEDS: DEXTROSE 50%-WATER 25 GM/50 ML VIAL IV SCH (23:45)
[2020-11-26] VITALS (24 sets, daily range): BP systolic 98–152; BP diastolic 53–88
[2020-11-26] MEDS: DOCUSATE SODIUM 100 MG CAP PO SCH ×3 (01:45→16:24)
[2020-11-26] MEDS: DEXMEDETOMIDINE HCL 400 MCG in 0.9%NACL 100ML 96 ML IV PRN ×5 (03:42→21:10)
[2020-11-26 04:04] LABS: ABG BASE EXCESS 7.9 mmol/L (-2.0-3.0); ABG HCO3 33.5 mmol/L (21.0-28.0); ABG OXYGEN SATURATION 91.4 % (95.0-99.0); ABG PCO2 50 mmHg (35-48)
[2020-11-26 06:18] LABS: BASOPHILS % (AUTO) 0.2 % (0.0-5.0); EOSINOPHILS % (AUTO) 0.9 % (0.0-8.0); HEMATOCRIT 46.4 % (42-54); LYMPHOCYTES % (AUTO) 5.5 % (21.0-51.0); MEAN CORPUSCULAR HEMOGLOBIN 30.3 pg (27.0-33.0); MEAN CORPUSCULAR HGB CONC 32.1 g/dL (32.0-36.0); MEAN CORPUSCULAR VOLUME 94.5 fL (79-99); MONOCYTES % (AUTO) 1.9 % (3.0-13.0); NEUTROPHILS % (AUTO) 90.4 % (40.0-77.0); PLATELET COUNT (AUTO) 259 K/uL (130-400); RED BLOOD CELL COUNT(AUTO) 4.91 MIL/uL (4.50-6.20); RED CELL DISTRIBUTION WIDTH 12.9 % (11.0-15.5); WHITE BLOOD COUNT (AUTO) 19.7 K/uL (4.8-10.8)
[2020-11-26 06:31] LABS: CREATININE 0.8 mg/dL (0.5-1.5); CRP QUANTITATIVE 37.3 mg/L (0.00-9.0); POTASSIUM 3.7 mmol/L (3.5-5.1)
[2020-11-26] MEDS: PANTOPRAZOLE 40 MG/VIAL IVP SCH ×2 (07:57→09:39)
[2020-11-26] MEDS ORDERED: ALBUTEROL 0.042% 1.25MG/3ML IH PRN (09:30)
[2020-11-26] MEDS ORDERED: PHARMACY COMMUNICATION MISC SCH ×2 (09:30→09:45)
[2020-11-26] MEDS: SENNOSIDES 8.6 MG TABLET PO SCH (09:38)
[2020-11-26] MEDS: POLYETHYLENE GLYCOL 3350 17 GM POWD.PACK PO SCH (09:38)
[2020-11-26] MEDS: ENOXAPARIN SODIUM 40 MG/0.4 ML SYRINGE SQ SCH ×2 (09:39→21:24)
[2020-11-26] MEDS: DEXAMETHASONE SOD PHOSPHATE 4 MG/ML 1ML VIAL IVP SCH (09:39)
[2020-11-26] MEDS: INSULIN HUMULIN R 100 UNIT/ML 3ML SQ SCH ×4 (09:53→21:21)
[2020-11-26] MEDS ORDERED: FLUCONAZOLE 400 MG/NS 200 ML 200 ML IV SCH (12:09)
[2020-11-26] MEDS ORDERED: INSULIN GLARGINE 100 UNITS/ML 10 ML VIAL SQ ONE (15:15)
[2020-11-26] MEDS: DEXTROSE 50%-WATER 25 GM/50 ML VIAL IV SCH (23:45)
[2020-11-27] VITALS (23 sets, daily range): BP systolic 96–177; BP diastolic 49–112
[2020-11-27] MEDS: DOCUSATE SODIUM 100 MG CAP PO SCH ×3 (01:45→17:11)
[2020-11-27 03:30] LABS: ABG BASE EXCESS 2.8 mmol/L (-2.0-3.0); ABG HCO3 28.5 mmol/L (21.0-28.0); ABG OXYGEN SATURATION 88.3 % (95.0-99.0); ABG PCO2 48 mmHg (35-48)
[2020-11-27 04:21] LABS: BASOPHILS % (AUTO) 0.2 % (0.0-5.0); HEMATOCRIT 44.6 % (42-54); LYMPHOCYTES % (AUTO) 3.8 % (21.0-51.0); MEAN CORPUSCULAR HEMOGLOBIN 30.4 pg (27.0-33.0); MEAN CORPUSCULAR HGB CONC 32.1 g/dL (32.0-36.0); MEAN CORPUSCULAR VOLUME 94.7 fL (79-99); PLATELET COUNT (AUTO) 280 K/uL (130-400); RED BLOOD CELL COUNT(AUTO) 4.71 MIL/uL (4.50-6.20); RED CELL DISTRIBUTION WIDTH 12.7 % (11.0-15.5); WHITE BLOOD COUNT (AUTO) 21.4 K/uL (4.8-10.8)
[2020-11-27 04:33] LABS: CREATININE 0.6 mg/dL (0.5-1.5); POTASSIUM 4.2 mmol/L (3.5-5.1)
[2020-11-27 06:49] LABS: CRP QUANTITATIVE 31.8 mg/L (0.00-9.0)
[2020-11-27] MEDS: INSULIN HUMULIN R 100 UNIT/ML 3ML SQ SCH ×5 (07:30→21:43)
[2020-11-27] MEDS: ENOXAPARIN SODIUM 40 MG/0.4 ML SYRINGE SQ SCH ×2 (10:27→21:31)
[2020-11-27] MEDS: PANTOPRAZOLE 40 MG/VIAL IVP SCH (10:28)
[2020-11-27] MEDS: POLYETHYLENE GLYCOL 3350 17 GM POWD.PACK PO SCH (10:28)
[2020-11-27] MEDS: SENNOSIDES 8.6 MG TABLET PO SCH (10:28)
[2020-11-27] MEDS: DEXAMETHASONE SOD PHOSPHATE 4 MG/ML 1ML VIAL IVP SCH (10:28)
[2020-11-27] MEDS: INSULIN GLARGINE 100 UNITS/ML 10 ML VIAL SQ SCH (10:30)
[2020-11-27] MEDS: DEXMEDETOMIDINE HCL 400 MCG in 0.9%NACL 100ML 96 ML IV PRN ×2 (10:33→16:21)
[2020-11-27] MEDS: DEXTROSE 5%-WATER 1,000 ML IV SCH (11:30)
[2020-11-27] MEDS ORDERED: PHARMACY COMMUNICATION MISC SCH (12:30)
[2020-11-27] MEDS: MICAFUNGIN 100MG+NS 100ML 100 ML IV SCH (15:33)
[2020-11-27] MEDS ORDERED: ENALAPRILAT DIHYDRATE 1.25 MG/ML 2ML VIAL IVP PRN (23:00)
[2020-11-27] MEDS: METOPROLOL TARTRATE 1 MG/ML 5ML VIAL IV SCH (23:32)
[2020-11-27] MEDS: DEXTROSE 50%-WATER 25 GM/50 ML VIAL IV SCH (23:45)
[2020-11-28] VITALS (23 sets, daily range): BP systolic 95–154; BP diastolic 57–97
[2020-11-28] MEDS: DEXTROSE 5%-WATER 1,000 ML IV SCH (00:27)
[2020-11-28] MEDS: DOCUSATE SODIUM 100 MG CAP PO SCH ×3 (02:48→18:29)
[2020-11-28 04:46] LABS: BASOPHILS % (AUTO) 0.2 % (0.0-5.0); EOSINOPHILS % (AUTO) 0.3 % (0.0-8.0); HEMATOCRIT 43.8 % (42-54); LYMPHOCYTES % (AUTO) 3.9 % (21.0-51.0); MEAN CORPUSCULAR HEMOGLOBIN 30.9 pg (27.0-33.0); MEAN CORPUSCULAR HGB CONC 33.1 g/dL (32.0-36.0); MEAN CORPUSCULAR VOLUME 93.4 fL (79-99); MONOCYTES % (AUTO) 2.5 % (3.0-13.0); NEUTROPHILS % (AUTO) 92.3 % (40.0-77.0); PLATELET COUNT (AUTO) 267 K/uL (130-400); RED BLOOD CELL COUNT(AUTO) 4.69 MIL/uL (4.50-6.20); RED CELL DISTRIBUTION WIDTH 12.8 % (11.0-15.5); WHITE BLOOD COUNT (AUTO) 22.2 K/uL (4.8-10.8)
[2020-11-28 04:54] LABS: CREATININE 0.5 mg/dL (0.5-1.5); CRP QUANTITATIVE 78.4 mg/L (0.00-9.0)
[2020-11-28] MEDS: METOPROLOL TARTRATE 1 MG/ML 5ML VIAL IV SCH ×3 (07:29→18:00)
[2020-11-28] MEDS: INSULIN GLARGINE 100 UNITS/ML 10 ML VIAL SQ SCH (08:00)
[2020-11-28] MEDS: INSULIN HUMULIN R 100 UNIT/ML 3ML SQ SCH ×6 (09:00→21:00)
[2020-11-28] MEDS: POLYETHYLENE GLYCOL 3350 17 GM POWD.PACK PO SCH (09:00)
[2020-11-28 10:59] LABS: ABG BASE EXCESS 1.1 mmol/L (-2.0-3.0); ABG HCO3 25.8 mmol/L (21.0-28.0); ABG OXYGEN SATURATION 82.1 % (95.0-99.0); ABG PCO2 42 mmHg (35-48)
[2020-11-28] MEDS: PANTOPRAZOLE 40 MG/VIAL IVP SCH (11:04)
[2020-11-28] MEDS: DEXAMETHASONE SOD PHOSPHATE 4 MG/ML 1ML VIAL IVP SCH (11:05)
[2020-11-28] MEDS: SENNOSIDES 8.6 MG TABLET PO SCH (11:07)
[2020-11-28] MEDS: ENOXAPARIN SODIUM 40 MG/0.4 ML SYRINGE SQ SCH (11:08)
[2020-11-28] MEDS: DEXMEDETOMIDINE HCL 400 MCG in 0.9%NACL 100ML 96 ML IV PRN ×2 (11:31→16:10)
[2020-11-28] MEDS ORDERED: PHARMACY COMMUNICATION MISC SCH (12:00)
[2020-11-28] MEDS: MICAFUNGIN 100MG+NS 100ML 100 ML IV SCH (12:20)
[2020-11-28] MEDS: ENOXAPARIN SODIUM 100 MG/1 ML SQ SCH ×2 (12:53→22:34)
[2020-11-28] MEDS: DEXTROSE 50%-WATER 25 GM/50 ML VIAL IV SCH (23:45)
[2020-11-29] VITALS (22 sets, daily range): BP systolic 85–158; BP diastolic 43–99
[2020-11-29] MEDS: INSULIN HUMULIN R 100 UNIT/ML 3ML SQ SCH ×7 (00:51→17:40)
[2020-11-29 04:27] LABS: BASOPHILS % (AUTO) 0.2 % (0.0-5.0); EOSINOPHILS % (AUTO) 0.3 % (0.0-8.0); HEMATOCRIT 45.6 % (42-54); LYMPHOCYTES % (AUTO) 3.5 % (21.0-51.0); MEAN CORPUSCULAR HEMOGLOBIN 30.3 pg (27.0-33.0); MEAN CORPUSCULAR HGB CONC 32.5 g/dL (32.0-36.0); MEAN CORPUSCULAR VOLUME 93.4 fL (79-99); MONOCYTES % (AUTO) 3.2 % (3.0-13.0); NEUTROPHILS % (AUTO) 91.6 % (40.0-77.0); PLATELET COUNT (AUTO) 312 K/uL (130-400); RED BLOOD CELL COUNT(AUTO) 4.88 MIL/uL (4.50-6.20); RED CELL DISTRIBUTION WIDTH 12.8 % (11.0-15.5); WHITE BLOOD COUNT (AUTO) 20.6 K/uL (4.8-10.8)
[2020-11-29 04:34] LABS: CREATININE 0.6 mg/dL (0.5-1.5); CRP QUANTITATIVE 53.3 mg/L (0.00-9.0); POTASSIUM 3.8 mmol/L (3.5-5.1)
[2020-11-29] MEDS: DEXMEDETOMIDINE HCL 400 MCG in 0.9%NACL 100ML 96 ML IV PRN ×3 (06:19→19:01)
[2020-11-29] MEDS: METOPROLOL TARTRATE 1 MG/ML 5ML VIAL IV SCH ×4 (06:33→17:42)
[2020-11-29] MEDS: DOCUSATE SODIUM 100 MG CAP PO SCH ×3 (09:45→17:29)
[2020-11-29] MEDS: SENNOSIDES 8.6 MG TABLET PO SCH (09:53)
[2020-11-29] MEDS: DEXAMETHASONE SOD PHOSPHATE 4 MG/ML 1ML VIAL IVP SCH (09:53)
[2020-11-29] MEDS: POLYETHYLENE GLYCOL 3350 17 GM POWD.PACK PO SCH (09:53)
[2020-11-29] MEDS: PANTOPRAZOLE 40 MG/VIAL IVP SCH (09:53)
[2020-11-29] MEDS: ENOXAPARIN SODIUM 100 MG/1 ML SQ SCH ×2 (09:54→21:25)
[2020-11-29] MEDS: INSULIN GLARGINE 100 UNITS/ML 10 ML VIAL SQ SCH (09:56)
[2020-11-29] MEDS: MICAFUNGIN 100MG+NS 100ML 100 ML IV SCH (17:46)
[2020-11-29 18:06] LABS: ABG HCO3 29.9 mmol/L (21.0-28.0); ABG OXYGEN SATURATION 91.3 % (95.0-99.0); ABG PCO2 45 mmHg (35-48)
[2020-11-29] MEDS: DEXTROSE 50%-WATER 25 GM/50 ML VIAL IV SCH (23:45)
[2020-11-30] VITALS (23 sets, daily range): BP systolic 85–176; BP diastolic 58–111
[2020-11-30] MEDS: METOPROLOL TARTRATE 1 MG/ML 5ML VIAL IV SCH ×4 (00:21→17:14)
[2020-11-30] MEDS: DOCUSATE SODIUM 100 MG CAP PO SCH ×3 (01:45→16:58)
[2020-11-30 05:38] LABS: BASOPHILS % (AUTO) 0.3 % (0.0-5.0); EOSINOPHILS % (AUTO) 1.5 % (0.0-8.0); HEMATOCRIT 49.8 % (42-54); LYMPHOCYTES % (AUTO) 5.3 % (21.0-51.0); MEAN CORPUSCULAR HEMOGLOBIN 30.9 pg (27.0-33.0); MEAN CORPUSCULAR HGB CONC 31.7 g/dL (32.0-36.0); MEAN CORPUSCULAR VOLUME 97.5 fL (79-99); NEUTROPHILS % (AUTO) 88.9 % (40.0-77.0); PLATELET COUNT (AUTO) 108 K/uL (130-400); RED BLOOD CELL COUNT(AUTO) 5.11 MIL/uL (4.50-6.20); RED CELL DISTRIBUTION WIDTH 13.3 % (11.0-15.5); WHITE BLOOD COUNT (AUTO) 13.1 K/uL (4.8-10.8)
[2020-11-30] MEDS: DEXMEDETOMIDINE HCL 400 MCG in 0.9%NACL 100ML 96 ML IV PRN ×3 (05:40→17:42)
[2020-11-30 05:47] LABS: CREATININE 0.5 mg/dL (0.5-1.5); CRP QUANTITATIVE 29.2 mg/L (0.00-9.0); POTASSIUM 4.8 mmol/L (3.5-5.1)
[2020-11-30] MEDS: INSULIN HUMULIN R 100 UNIT/ML 3ML SQ SCH ×7 (06:39→21:00)
[2020-11-30 07:23] LABS: ABG BASE EXCESS 6.1 mmol/L (-2.0-3.0); ABG HCO3 33.1 mmol/L (21.0-28.0); ABG OXYGEN SATURATION 82.3 % (95.0-99.0); ABG PCO2 57 mmHg (35-48)
[2020-11-30] MEDS ORDERED: SOLU-MEDROL 125MG VIAL IVP SCH (08:00)
[2020-11-30] MEDS: POLYETHYLENE GLYCOL 3350 17 GM POWD.PACK PO SCH (09:04)
[2020-11-30] MEDS: SENNOSIDES 8.6 MG TABLET PO SCH (09:04)
[2020-11-30] MEDS: SOLU-MEDROL 125MG VIAL IVP SCH (09:05)
[2020-11-30] MEDS: ENOXAPARIN SODIUM 100 MG/1 ML SQ SCH ×2 (09:05→21:00)
[2020-11-30] MEDS: PANTOPRAZOLE 40 MG/VIAL IVP SCH (09:05)
[2020-11-30] MEDS: INSULIN GLARGINE 100 UNITS/ML 10 ML VIAL SQ SCH (09:07)
[2020-11-30] MEDS: MICAFUNGIN 100MG+NS 100ML 100 ML IV SCH (13:25)
[2020-11-30] MEDS: FUROSEMIDE 20MG VIAL IVP SCH (17:14)
[2020-11-30] MEDS: DEXTROSE 50%-WATER 25 GM/50 ML VIAL IV SCH (23:45)
[2020-12-01] VITALS (24 sets, daily range): BP systolic 116–158; BP diastolic 56–99
[2020-12-01] MEDS: INSULIN HUMULIN R 100 UNIT/ML 3ML SQ SCH ×8 (00:39→22:19)
[2020-12-01] MEDS: DOCUSATE SODIUM 100 MG CAP PO SCH ×3 (01:45→17:33)
[2020-12-01 04:09] LABS: BASOPHILS % (AUTO) 0.1 % (0.0-5.0); EOSINOPHILS % (AUTO) 0.2 % (0.0-8.0); HEMATOCRIT 45.8 % (42-54); LYMPHOCYTES % (AUTO) 5.7 % (21.0-51.0); MEAN CORPUSCULAR HEMOGLOBIN 30.5 pg (27.0-33.0); MEAN CORPUSCULAR HGB CONC 32.1 g/dL (32.0-36.0); MONOCYTES % (AUTO) 3.5 % (3.0-13.0); NEUTROPHILS % (AUTO) 89.6 % (40.0-77.0); PLATELET COUNT (AUTO) 300 K/uL (130-400); RED BLOOD CELL COUNT(AUTO) 4.82 MIL/uL (4.50-6.20); RED CELL DISTRIBUTION WIDTH 13.2 % (11.0-15.5); WHITE BLOOD COUNT (AUTO) 14.1 K/uL (4.8-10.8)
[2020-12-01 04:22] LABS: CREATININE 0.5 mg/dL (0.5-1.5); POTASSIUM 3.2 mmol/L (3.5-5.1)
[2020-12-01] MEDS: DEXMEDETOMIDINE HCL 400 MCG in 0.9%NACL 100ML 96 ML IV PRN ×4 (04:53→18:28)
[2020-12-01] MEDS: METOPROLOL TARTRATE 1 MG/ML 5ML VIAL IV SCH ×4 (05:40→17:42)
[2020-12-01] MEDS: POTASSIUM CHLORIDE 20MEQ/100ML 100 ML IV PRN ×2 (05:40→07:00)
[2020-12-01] MEDS: FUROSEMIDE 20MG VIAL IVP SCH ×2 (09:00→20:49)
[2020-12-01] MEDS: POLYETHYLENE GLYCOL 3350 17 GM POWD.PACK PO SCH (09:45)
[2020-12-01] MEDS: SENNOSIDES 8.6 MG TABLET PO SCH (09:45)
[2020-12-01] MEDS: PANTOPRAZOLE 40 MG/VIAL IVP SCH (09:45)
[2020-12-01] MEDS: SOLU-MEDROL 125MG VIAL IVP SCH (09:46)
[2020-12-01] MEDS: ENOXAPARIN SODIUM 100 MG/1 ML SQ SCH ×2 (09:48→21:24)
[2020-12-01] MEDS: INSULIN GLARGINE 100 UNITS/ML 10 ML VIAL SQ SCH (09:53)
[2020-12-01 10:07] LABS: CREATININE 0.5 mg/dL (0.5-1.5); MAGNESIUM 2.5 mg/dL (1.80-2.40); POTASSIUM 3.9 mmol/L (3.5-5.1)
[2020-12-01] MEDS: MICAFUNGIN 100MG+NS 100ML 100 ML IV SCH (14:56)
[2020-12-01] MEDS: DEXTROSE 50%-WATER 25 GM/50 ML VIAL IV SCH (23:45)
[2020-12-02] VITALS (24 sets, daily range): BP systolic 108–153; BP diastolic 54–88
[2020-12-02] MEDS: DOCUSATE SODIUM 100 MG CAP PO SCH ×3 (01:45→17:45)
[2020-12-02] MEDS: METOPROLOL TARTRATE 1 MG/ML 5ML VIAL IV SCH ×4 (06:00→18:00)
[2020-12-02] MEDS: INSULIN HUMULIN R 100 UNIT/ML 3ML SQ SCH ×8 (06:49→21:00)
[2020-12-02 07:14] LABS: CREATININE 0.6 mg/dL (0.5-1.5); CRP QUANTITATIVE 12.5 mg/L (0.00-9.0); MAGNESIUM 2.2 mg/dL (1.80-2.40); POTASSIUM 3.9 mmol/L (3.5-5.1)
[2020-12-02] MEDS: DEXMEDETOMIDINE HCL 400 MCG in 0.9%NACL 100ML 96 ML IV PRN ×2 (07:35→13:47)
[2020-12-02] MEDS: INSULIN GLARGINE 100 UNITS/ML 10 ML VIAL SQ SCH (09:42)
[2020-12-02] MEDS: POLYETHYLENE GLYCOL 3350 17 GM POWD.PACK PO SCH (09:42)
[2020-12-02] MEDS: SENNOSIDES 8.6 MG TABLET PO SCH (09:43)
[2020-12-02] MEDS: PANTOPRAZOLE 40 MG/VIAL IVP SCH (09:43)
[2020-12-02] MEDS: ENOXAPARIN SODIUM 100 MG/1 ML SQ SCH ×2 (09:43→22:18)
[2020-12-02] MEDS: FUROSEMIDE 20MG VIAL IVP SCH (09:45)
[2020-12-02] MEDS: SOLU-MEDROL 125MG VIAL IVP SCH (09:56)
[2020-12-02] MEDS: MICAFUNGIN 100MG+NS 100ML 100 ML IV SCH (13:33)
[2020-12-02] MEDS: FUROSEMIDE 40MG VIAL IVP SCH (14:00)
[2020-12-02] MEDS: DEXTROSE 50%-WATER 25 GM/50 ML VIAL IV SCH (23:45)
[2020-12-03] VITALS (20 sets, daily range): BP systolic 106–172; BP diastolic 49–108
[2020-12-03] MEDS: METOPROLOL TARTRATE 1 MG/ML 5ML VIAL IV SCH
[2020-12-03] MEDS: DOCUSATE SODIUM 100 MG CAP PO SCH ×3 (01:45→16:48)
[2020-12-03 06:44] LABS: BASOPHILS % (AUTO) 0.1 % (0.0-5.0); EOSINOPHILS % (AUTO) 0.8 % (0.0-8.0); HEMATOCRIT 47.8 % (42-54); LYMPHOCYTES % (AUTO) 4.9 % (21.0-51.0); MEAN CORPUSCULAR HEMOGLOBIN 30.8 pg (27.0-33.0); MEAN CORPUSCULAR HGB CONC 31.8 g/dL (32.0-36.0); MEAN CORPUSCULAR VOLUME 96.8 fL (79-99); MONOCYTES % (AUTO) 3.5 % (3.0-13.0); PLATELET COUNT (AUTO) 275 K/uL (130-400); RED BLOOD CELL COUNT(AUTO) 4.94 MIL/uL (4.50-6.20); RED CELL DISTRIBUTION WIDTH 13.7 % (11.0-15.5); WHITE BLOOD COUNT (AUTO) 15.2 K/uL (4.8-10.8)
[2020-12-03 06:58] LABS: ALBUMIN 2.1 g/dL (3.5-5.0); BILIRUBIN,TOTAL 0.6 mg/dL (0.2-1.0); CREATININE 0.5 mg/dL (0.5-1.5); CRP QUANTITATIVE 7.9 mg/L (0.00-9.0); POTASSIUM 3.5 mmol/L (3.5-5.1); TOTAL PROTEIN, SERUM 6.2 g/dL (6.0-8.3)
[2020-12-03] MEDS: INSULIN HUMULIN R 100 UNIT/ML 3ML SQ SCH ×8 (07:30→22:07)
[2020-12-03] MEDS: FUROSEMIDE 40MG VIAL IVP SCH ×4 (07:46→22:11)
[2020-12-03] MEDS: POLYETHYLENE GLYCOL 3350 17 GM POWD.PACK PO SCH (08:22)
[2020-12-03] MEDS: SENNOSIDES 8.6 MG TABLET PO SCH (08:23)
[2020-12-03] MEDS: SOLU-MEDROL 125MG VIAL IVP SCH (08:23)
[2020-12-03] MEDS: PANTOPRAZOLE 40 MG/VIAL IVP SCH (08:25)
[2020-12-03] MEDS: ENOXAPARIN SODIUM 100 MG/1 ML SQ SCH ×2 (08:25→22:11)
[2020-12-03] MEDS: INSULIN GLARGINE 100 UNITS/ML 10 ML VIAL SQ SCH (08:30)
[2020-12-03] MEDS: DEXMEDETOMIDINE HCL 400 MCG in 0.9%NACL 100ML 96 ML IV PRN (11:10)
[2020-12-03] MEDS: MICAFUNGIN 100MG+NS 100ML 100 ML IV SCH (16:48)
[2020-12-03] MEDS: DEXTROSE 50%-WATER 25 GM/50 ML VIAL IV SCH (23:31)
[2020-12-04] VITALS (45 sets, daily range): BP systolic 92–168; BP diastolic 57–101
[2020-12-04] MEDS: INSULIN HUMULIN R 100 UNIT/ML 3ML SQ SCH ×8 (01:01→21:00)
[2020-12-04] MEDS: DOCUSATE SODIUM 100 MG CAP PO SCH ×3 (01:45→17:21)
[2020-12-04 05:17] LABS: BASOPHILS % (AUTO) 0.1 % (0.0-5.0); EOSINOPHILS % (AUTO) 0.1 % (0.0-8.0); HEMATOCRIT 47.6 % (42-54); LYMPHOCYTES % (AUTO) 3.9 % (21.0-51.0); MEAN CORPUSCULAR HEMOGLOBIN 30.9 pg (27.0-33.0); MEAN CORPUSCULAR HGB CONC 31.5 g/dL (32.0-36.0); MEAN CORPUSCULAR VOLUME 97.9 fL (79-99); MONOCYTES % (AUTO) 4.6 % (3.0-13.0); NEUTROPHILS % (AUTO) 90.4 % (40.0-77.0); PLATELET COUNT (AUTO) 282 K/uL (130-400); RED BLOOD CELL COUNT(AUTO) 4.86 MIL/uL (4.50-6.20); RED CELL DISTRIBUTION WIDTH 13.4 % (11.0-15.5); WHITE BLOOD COUNT (AUTO) 14.2 K/uL (4.8-10.8)
[2020-12-04 05:23] LABS: CREATININE 0.6 mg/dL (0.5-1.5); MAGNESIUM 2.5 mg/dL (1.80-2.40); POTASSIUM 3.3 mmol/L (3.5-5.1)
[2020-12-04] MEDS: FUROSEMIDE 40MG VIAL IVP SCH ×3 (06:00→21:29)
[2020-12-04] MEDS: POLYETHYLENE GLYCOL 3350 17 GM POWD.PACK PO SCH (08:18)
[2020-12-04] MEDS: SOLU-MEDROL 125MG VIAL IVP SCH (08:18)
[2020-12-04] MEDS: SENNOSIDES 8.6 MG TABLET PO SCH (08:18)
[2020-12-04] MEDS: ENOXAPARIN SODIUM 100 MG/1 ML SQ SCH ×2 (08:18→21:28)
[2020-12-04] MEDS: PANTOPRAZOLE 40 MG/VIAL IVP SCH (08:19)
[2020-12-04] MEDS: INSULIN GLARGINE 100 UNITS/ML 10 ML VIAL SQ SCH (08:21)
[2020-12-04] MEDS: DEXMEDETOMIDINE HCL 400 MCG in 0.9%NACL 100ML 96 ML IV PRN ×3 (12:01→19:54)
[2020-12-04] MEDS: POTASSIUM CHLORIDE 20MEQ/100ML 100 ML IV PRN (12:03)
[2020-12-04] MEDS: MICAFUNGIN 100MG+NS 100ML 100 ML IV SCH (14:35)
[2020-12-04] MEDS: DEXTROSE 50%-WATER 25 GM/50 ML VIAL IV SCH (23:45)
[2020-12-05] VITALS (42 sets, daily range): BP systolic 116–183; BP diastolic 59–108
[2020-12-05] MEDS: DEXMEDETOMIDINE HCL 400 MCG in 0.9%NACL 100ML 96 ML IV PRN ×4 (00:02→17:48)
[2020-12-05] MEDS: DOCUSATE SODIUM 100 MG CAP PO SCH ×3 (03:19→16:02)
[2020-12-05] MEDS: INSULIN HUMULIN R 100 UNIT/ML 3ML SQ SCH ×8 (05:41→20:40)
[2020-12-05] MEDS: FUROSEMIDE 40MG VIAL IVP SCH ×3 (05:41→21:33)
[2020-12-05 06:15] LABS: BASOPHILS % (AUTO) 0.1 % (0.0-5.0); EOSINOPHILS % (AUTO) 0.4 % (0.0-8.0); HEMATOCRIT 48.8 % (42-54); LYMPHOCYTES % (AUTO) 4.4 % (21.0-51.0); MEAN CORPUSCULAR HEMOGLOBIN 30.6 pg (27.0-33.0); MEAN CORPUSCULAR HGB CONC 30.3 g/dL (32.0-36.0); MEAN CORPUSCULAR VOLUME 100.8 fL (79-99); MONOCYTES % (AUTO) 4.7 % (3.0-13.0); NEUTROPHILS % (AUTO) 89.8 % (40.0-77.0); PLATELET COUNT (AUTO) 262 K/uL (130-400); RED BLOOD CELL COUNT(AUTO) 4.84 MIL/uL (4.50-6.20); RED CELL DISTRIBUTION WIDTH 13.6 % (11.0-15.5); WHITE BLOOD COUNT (AUTO) 14.8 K/uL (4.8-10.8)
[2020-12-05 06:17] LABS: CREATININE 0.7 mg/dL (0.5-1.5); MAGNESIUM 2.3 mg/dL (1.80-2.40); POTASSIUM 3.2 mmol/L (3.5-5.1)
[2020-12-05] MEDS: POTASSIUM CHLORIDE 20MEQ/100ML 100 ML IV PRN ×2 (06:54→08:43)
[2020-12-05] MEDS ORDERED: POTASSIUM CHLORIDE 10% ELIXIR 20 MEQ/15 ML UDCUP PO SCH (08:30)
[2020-12-05] MEDS: SENNOSIDES 8.6 MG TABLET PO SCH (08:42)
[2020-12-05] MEDS: SOLU-MEDROL 125MG VIAL IVP SCH (08:42)
[2020-12-05] MEDS: PANTOPRAZOLE 40 MG/VIAL IVP SCH (08:42)
[2020-12-05] MEDS: ENOXAPARIN SODIUM 100 MG/1 ML SQ SCH ×2 (08:43→21:36)
[2020-12-05] MEDS: POLYETHYLENE GLYCOL 3350 17 GM POWD.PACK PO SCH (08:43)
[2020-12-05] MEDS: INSULIN GLARGINE 100 UNITS/ML 10 ML VIAL SQ SCH (08:50)
[2020-12-05] MEDS ORDERED: PHARMACY COMMUNICATION MISC SCH (11:15)
[2020-12-05] MEDS: BIOTENE 44.3 ML SOLUTION MM SCH ×2 (11:30→21:00)
[2020-12-05] MEDS ORDERED: CLOTRIMAZOLE 10 MG TROCHE MM SCH (12:30)
[2020-12-05] MEDS: MICAFUNGIN 100MG+NS 100ML 100 ML IV SCH (12:46)
[2020-12-05] MEDS ORDERED: NYSTATIN 100000 UNIT/ML 5ML UDCUP PO SCH (13:00)
[2020-12-05] MEDS ORDERED: NYSTATIN 100000 UNIT/ML 5ML UDCUP ONE (13:03)
[2020-12-05 16:14] LABS: CREATININE 0.6 mg/dL (0.5-1.5)
[2020-12-05] MEDS: VALACYCLOVIR HCL 500 MG TABLET NG SCH (21:36)
[2020-12-05] MEDS: DEXTROSE 50%-WATER 25 GM/50 ML VIAL IV SCH (22:43)
[2020-12-06] VITALS (44 sets, daily range): BP systolic 119–178; BP diastolic 63–96
[2020-12-06] MEDS: INSULIN HUMULIN R 100 UNIT/ML 3ML SQ SCH ×9 (00:13→21:00)
[2020-12-06] MEDS: DOCUSATE SODIUM 100 MG CAP PO SCH ×3 (01:45→16:57)
[2020-12-06] MEDS: FUROSEMIDE 40MG VIAL IVP SCH ×3 (06:00→21:28)
[2020-12-06 06:45] LABS: BASOPHILS % (AUTO) 0.1 % (0.0-5.0); EOSINOPHILS % (AUTO) 0.6 % (0.0-8.0); HEMATOCRIT 47.7 % (42-54); LYMPHOCYTES % (AUTO) 5.3 % (21.0-51.0); MEAN CORPUSCULAR HGB CONC 30.4 g/dL (32.0-36.0); MEAN CORPUSCULAR VOLUME 102.1 fL (79-99); MONOCYTES % (AUTO) 4.1 % (3.0-13.0); NEUTROPHILS % (AUTO) 89.2 % (40.0-77.0); PLATELET COUNT (AUTO) 252 K/uL (130-400); RED BLOOD CELL COUNT(AUTO) 4.67 MIL/uL (4.50-6.20); RED CELL DISTRIBUTION WIDTH 13.6 % (11.0-15.5); WHITE BLOOD COUNT (AUTO) 11.5 K/uL (4.8-10.8)
[2020-12-06 07:04] LABS: ALANINE AMINOTRANSFERASE 51 U/L (12-78); ALBUMIN 2.2 g/dL (3.5-5.0); ASPARTATE AMINOTRANSFERASE 18 U/L (10-37); BILIRUBIN,TOTAL 0.4 mg/dL (0.2-1.0); CHLORIDE 107 mmol/L (101-111); CREATININE 0.5 mg/dL (0.5-1.5); GLOMERULAR FILTR. RATE CALC 183 mL/min (>60); GLUCOSE,RANDOM 198 mg/dL (70-105); POTASSIUM 3.7 mmol/L (3.5-5.1); SODIUM SERUM 153 mmol/L (136-145); TOTAL PROTEIN, SERUM 6.5 g/dL (6.0-8.3); UREA NITROGEN, BLOOD 30 mg/dL (7-18)
[2020-12-06 07:11] LABS: CARBON DIOXIDE > 45 mmol/L (21-32)
[2020-12-06] MEDS ORDERED: INSULIN GLARGINE 100 UNITS/ML 10 ML VIAL SQ SCH (08:00)
[2020-12-06] MEDS: POTASSIUM CHLORIDE 20MEQ/100ML 100 ML IV PRN (08:11)
[2020-12-06] MEDS: ENOXAPARIN SODIUM 100 MG/1 ML SQ SCH ×2 (08:12→21:23)
[2020-12-06] MEDS: VALACYCLOVIR HCL 500 MG TABLET NG SCH ×2 (08:12→21:29)
[2020-12-06] MEDS: PANTOPRAZOLE 40 MG/VIAL IVP SCH (08:12)
[2020-12-06] MEDS: POLYETHYLENE GLYCOL 3350 17 GM POWD.PACK PO SCH (08:12)
[2020-12-06] MEDS: SOLU-MEDROL 125MG VIAL IVP SCH (08:12)
[2020-12-06] MEDS: SENNOSIDES 8.6 MG TABLET PO SCH (08:12)
[2020-12-06] MEDS: BIOTENE 44.3 ML SOLUTION MM SCH ×3 (08:13→21:30)
[2020-12-06] MEDS: DEXMEDETOMIDINE HCL 400 MCG in 0.9%NACL 100ML 96 ML IV PRN ×2 (10:42→15:38)
[2020-12-06] MEDS: MICAFUNGIN 100MG+NS 100ML 100 ML IV SCH (12:00)
[2020-12-06] MEDS: DEXTROSE 50%-WATER 25 GM/50 ML VIAL IV SCH (23:45)
[2020-12-07] VITALS (44 sets, daily range): BP systolic 74–166; BP diastolic 45–89
[2020-12-07] MEDS: DOCUSATE SODIUM 100 MG CAP PO SCH ×3 (01:45→16:22)
[2020-12-07] MEDS: INSULIN HUMULIN R 100 UNIT/ML 3ML SQ SCH ×7 (06:00→21:22)
[2020-12-07] MEDS: FUROSEMIDE 40MG VIAL IVP SCH ×3 (06:06→21:30)
[2020-12-07 07:39] LABS: BASOPHILS % (AUTO) 0.2 % (0.0-5.0); EOSINOPHILS % (AUTO) 2.2 % (0.0-8.0); HEMATOCRIT 46.6 % (42-54); LYMPHOCYTES % (AUTO) 2.6 % (21.0-51.0); MEAN CORPUSCULAR HEMOGLOBIN 30.4 pg (27.0-33.0); MEAN CORPUSCULAR HGB CONC 29.8 g/dL (32.0-36.0); MONOCYTES % (AUTO) 3.6 % (3.0-13.0); NEUTROPHILS % (AUTO) 90.9 % (40.0-77.0); PLATELET COUNT (AUTO) 243 K/uL (130-400); RED BLOOD CELL COUNT(AUTO) 4.57 MIL/uL (4.50-6.20); RED CELL DISTRIBUTION WIDTH 13.9 % (11.0-15.5); WHITE BLOOD COUNT (AUTO) 12.5 K/uL (4.8-10.8)
[2020-12-07 07:57] LABS: CREATININE 0.7 mg/dL (0.5-1.5); POTASSIUM 3.5 mmol/L (3.5-5.1)
[2020-12-07] MEDS ORDERED: INSULIN GLARGINE 100 UNITS/ML 10 ML VIAL SQ SCH (08:00)
[2020-12-07] MEDS: ENOXAPARIN SODIUM 100 MG/1 ML SQ SCH ×2 (09:01→21:03)
[2020-12-07] MEDS: POLYETHYLENE GLYCOL 3350 17 GM POWD.PACK PO SCH (09:02)
[2020-12-07] MEDS: SENNOSIDES 8.6 MG TABLET PO SCH (09:02)
[2020-12-07] MEDS: SOLU-MEDROL 125MG VIAL IVP SCH (09:03)
[2020-12-07] MEDS: BIOTENE 44.3 ML SOLUTION MM SCH ×2 (09:03→21:04)
[2020-12-07] MEDS: PANTOPRAZOLE 40 MG/VIAL IVP SCH (09:03)
[2020-12-07] MEDS: VALACYCLOVIR HCL 500 MG TABLET NG SCH ×2 (09:03→21:02)
[2020-12-07] MEDS: POTASSIUM CHLORIDE 20MEQ/100ML 100 ML IV PRN (09:04)
[2020-12-07] MEDS: DEXMEDETOMIDINE HCL 400 MCG in 0.9%NACL 100ML 96 ML IV PRN (12:36)
[2020-12-07 12:55] LABS: ABG BASE EXCESS 20.4 mmol/L (-2.0-3.0); ABG HCO3 52.5 mmol/L (21.0-28.0); ABG OXYGEN SATURATION 95.1 % (95.0-99.0); ABG PCO2 104 mmHg (35-48)
[2020-12-07] MEDS ORDERED: PROPOFOL 1000 MG/100 ML IV PRN (13:15)
[2020-12-07] MEDS: MICAFUNGIN 100MG+NS 100ML 100 ML IV SCH (13:15)
[2020-12-07] MEDS ORDERED: NOREPINEPHRIN 4MG/NS 250ML 250 ML IV ONE (13:55)
[2020-12-07 15:36] LABS: ABG BASE EXCESS 22.7 mmol/L (-2.0-3.0); ABG HCO3 50.4 mmol/L (21.0-28.0); ABG OXYGEN SATURATION 80.3 % (95.0-99.0); ABG PCO2 67 mmHg (35-48)
[2020-12-07] MEDS: PROPOFOL 1000 MG/100 ML 100 ML IV SCH ×2 (16:17→20:21)
[2020-12-07] MEDS: FENTANYL 2500MCG+NS 250ML 250 ML IV SCH (16:19)
[2020-12-07 16:33] LABS: ABG BASE EXCESS 21.6 mmol/L (-2.0-3.0); ABG HCO3 48.5 mmol/L (21.0-28.0); ABG OXYGEN SATURATION 91.3 % (95.0-99.0); ABG PCO2 63 mmHg (35-48)
[2020-12-07] MEDS: DEXTROSE 50%-WATER 25 GM/50 ML VIAL IV SCH (23:02)
[2020-12-08] VITALS (50 sets, daily range): BP systolic 89–132; BP diastolic 47–84
[2020-12-08] MEDS ORDERED: ACETAMINOPHEN 500 MG TABLET ONE (00:27)
[2020-12-08] MEDS: INSULIN HUMULIN R 100 UNIT/ML 3ML SQ SCH (01:00)
[2020-12-08] MEDS: PROPOFOL 1000 MG/100 ML 100 ML IV SCH ×2 (01:26→13:17)
[2020-12-08] MEDS: NOREPINEPHRIN 4MG/NS 250ML 250 ML IV SCH ×2 (01:27→13:18)
[2020-12-08] MEDS: DOCUSATE SODIUM 100 MG CAP PO SCH ×3 (01:45→17:40)
[2020-12-08] MEDS: FUROSEMIDE 40MG VIAL IVP SCH ×3 (05:57→22:30)
[2020-12-08 06:08] LABS: BASOPHILS % (AUTO) 0.4 % (0.0-5.0); EOSINOPHILS % (AUTO) 0.3 % (0.0-8.0); HEMATOCRIT 38.9 % (42-54); LYMPHOCYTES % (AUTO) 10.5 % (21.0-51.0); MEAN CORPUSCULAR HEMOGLOBIN 30.9 pg (27.0-33.0); MEAN CORPUSCULAR HGB CONC 31.6 g/dL (32.0-36.0); MEAN CORPUSCULAR VOLUME 97.7 fL (79-99); MONOCYTES % (AUTO) 2.3 % (3.0-13.0); NEUTROPHILS % (AUTO) 85.8 % (40.0-77.0); NUCLEATED RED BLOOD CELLS 0.2 % (0.0-0.19); PLATELET COUNT (AUTO) 229 K/uL (130-400); RED BLOOD CELL COUNT(AUTO) 3.98 MIL/uL (4.50-6.20); RED CELL DISTRIBUTION WIDTH 13.8 % (11.0-15.5); WHITE BLOOD COUNT (AUTO) 10.8 K/uL (4.8-10.8)
[2020-12-08 06:24] LABS: CREATININE 0.6 mg/dL (0.5-1.5)
[2020-12-08 06:29] LABS: POTASSIUM 2.9 mmol/L (3.5-5.1)
[2020-12-08] MEDS: POTASSIUM CHLORIDE 20MEQ/100ML 100 ML IV PRN ×3 (06:38→13:50)
[2020-12-08] MEDS: PANTOPRAZOLE 40 MG/VIAL IVP SCH (09:30)
[2020-12-08] MEDS: ENOXAPARIN SODIUM 100 MG/1 ML SQ SCH ×2 (09:30→22:29)
[2020-12-08] MEDS: POLYETHYLENE GLYCOL 3350 17 GM POWD.PACK PO SCH (09:30)
[2020-12-08] MEDS: SOLU-MEDROL 125MG VIAL IVP SCH (09:32)
[2020-12-08] MEDS: VALACYCLOVIR HCL 500 MG TABLET NG SCH ×2 (09:32→22:30)
[2020-12-08] MEDS: SENNOSIDES 8.6 MG TABLET PO SCH (09:33)
[2020-12-08] MEDS: BIOTENE 44.3 ML SOLUTION MM SCH ×2 (09:33→22:29)
[2020-12-08 10:25] LABS: ABG BASE EXCESS 21.1 mmol/L (-2.0-3.0); ABG HCO3 50.7 mmol/L (21.0-28.0); ABG OXYGEN SATURATION 75.6 % (95.0-99.0); ABG PCO2 82 mmHg (35-48)
[2020-12-08] MEDS: INSULIN REGULAR, HUMAN 3ML 100 UNIT in 0.9%NACL 100ML 99 ML IV PRN ×2 (13:18)
[2020-12-08] MEDS: FENTANYL 2500MCG+NS 250ML 250 ML IV SCH (13:18)
[2020-12-08] MEDS: MICAFUNGIN 100MG+NS 100ML 100 ML IV SCH (13:48)
[2020-12-08 17:25] LABS: CREATININE 0.6 mg/dL (0.5-1.5); POTASSIUM 3.7 mmol/L (3.5-5.1)
[2020-12-08] MEDS ORDERED: PHARMACY COMMUNICATION MISC SCH (20:30)
[2020-12-08] MEDS ORDERED: VECURONIUM 10MG/10ML IV PRN (20:45)
[2020-12-08] MEDS: DEXTROSE 50%-WATER 25 GM/50 ML VIAL IV SCH (23:45)
[2020-12-09] VITALS (94 sets, daily range): BP systolic 87–149; BP diastolic 43–88
[2020-12-09] MEDS: DOCUSATE SODIUM 100 MG CAP PO SCH ×3 (01:39→17:26)
[2020-12-09 05:39] LABS: BASOPHILS % (AUTO) 0.2 % (0.0-5.0); EOSINOPHILS % (AUTO) 2.2 % (0.0-8.0); HEMATOCRIT 39.4 % (42-54); LYMPHOCYTES % (AUTO) 6.8 % (21.0-51.0); MEAN CORPUSCULAR HEMOGLOBIN 30.4 pg (27.0-33.0); MEAN CORPUSCULAR HGB CONC 30.7 g/dL (32.0-36.0); MONOCYTES % (AUTO) 3.4 % (3.0-13.0); NEUTROPHILS % (AUTO) 86.1 % (40.0-77.0); NUCLEATED RED BLOOD CELLS 0.3 % (0.0-0.19); PLATELET COUNT (AUTO) 240 K/uL (130-400); RED BLOOD CELL COUNT(AUTO) 3.98 MIL/uL (4.50-6.20); RED CELL DISTRIBUTION WIDTH 13.7 % (11.0-15.5); WHITE BLOOD COUNT (AUTO) 11.8 K/uL (4.8-10.8)
[2020-12-09 05:52] LABS: CREATININE 0.6 mg/dL (0.5-1.5)
[2020-12-09] MEDS: FUROSEMIDE 40MG VIAL IVP SCH ×3 (06:38→22:03)
[2020-12-09] MEDS: VALACYCLOVIR HCL 500 MG TABLET NG SCH (08:01)
[2020-12-09] MEDS: SENNOSIDES 8.6 MG TABLET PO SCH (08:01)
[2020-12-09] MEDS: PANTOPRAZOLE 40 MG/VIAL IVP SCH (08:01)
[2020-12-09] MEDS: SOLU-MEDROL 125MG VIAL IVP SCH (08:02)
[2020-12-09] MEDS: POLYETHYLENE GLYCOL 3350 17 GM POWD.PACK PO SCH (08:03)
[2020-12-09] MEDS: BIOTENE 44.3 ML SOLUTION MM SCH ×2 (08:03→20:09)
[2020-12-09] MEDS: ENOXAPARIN SODIUM 100 MG/1 ML SQ SCH ×2 (08:04→20:09)
[2020-12-09] MEDS: INSULIN REGULAR, HUMAN 3ML 100 UNIT in 0.9%NACL 100ML 99 ML IV PRN ×2 (10:16)
[2020-12-09] MEDS: NOREPINEPHRIN 4MG/NS 250ML 250 ML IV SCH ×2 (11:59→22:06)
[2020-12-09] MEDS: MICAFUNGIN 100MG+NS 100ML 100 ML IV SCH (12:45)
[2020-12-09] MEDS: PROPOFOL 1000 MG/100 ML 100 ML IV SCH ×2 (13:09→17:59)
[2020-12-09] MEDS: FENTANYL 2500MCG+NS 250ML 250 ML IV SCH (13:26)
[2020-12-09] MEDS: DEXTROSE 50%-WATER 25 GM/50 ML VIAL IV SCH (23:45)
[2020-12-10] VITALS (67 sets, daily range): BP systolic 96–227; BP diastolic 44–129
[2020-12-10] MEDS: PROPOFOL 1000 MG/100 ML 100 ML IV SCH ×4 (00:04→20:12)
[2020-12-10] MEDS: DOCUSATE SODIUM 100 MG CAP PO SCH ×3 (01:45→17:30)
[2020-12-10 03:52] LABS: ABG BASE EXCESS 17.4 mmol/L (-2.0-3.0); ABG HCO3 48.2 mmol/L (21.0-28.0); ABG OXYGEN SATURATION 87.9 % (95.0-99.0); ABG PCO2 89 mmHg (35-48)
[2020-12-10] MEDS: FUROSEMIDE 40MG VIAL IVP SCH ×3 (05:37→22:42)
[2020-12-10 06:19] LABS: BASOPHILS % (AUTO) 0.4 % (0.0-5.0); EOSINOPHILS % (AUTO) 2.1 % (0.0-8.0); LYMPHOCYTES % (AUTO) 6.1 % (21.0-51.0); MEAN CORPUSCULAR HEMOGLOBIN 30.6 pg (27.0-33.0); MEAN CORPUSCULAR HGB CONC 30.3 g/dL (32.0-36.0); MONOCYTES % (AUTO) 4.7 % (3.0-13.0); PLATELET COUNT (AUTO) 225 K/uL (130-400); RED BLOOD CELL COUNT(AUTO) 3.96 MIL/uL (4.50-6.20); WHITE BLOOD COUNT (AUTO) 11.2 K/uL (4.8-10.8)
[2020-12-10 06:42] LABS: CREATININE 0.5 mg/dL (0.5-1.5); POTASSIUM 3.6 mmol/L (3.5-5.1)
[2020-12-10] MEDS: ENOXAPARIN SODIUM 100 MG/1 ML SQ SCH ×3 (08:23→22:42)
[2020-12-10] MEDS: POLYETHYLENE GLYCOL 3350 17 GM POWD.PACK PO SCH (08:23)
[2020-12-10] MEDS: SOLU-MEDROL 125MG VIAL IVP SCH (08:24)
[2020-12-10] MEDS: BIOTENE 44.3 ML SOLUTION MM SCH ×2 (08:24→21:32)
[2020-12-10] MEDS: SENNOSIDES 8.6 MG TABLET PO SCH (08:24)
[2020-12-10] MEDS: PANTOPRAZOLE 40 MG/VIAL IVP SCH (08:24)
[2020-12-10] MEDS: POTASSIUM CHLORIDE 20MEQ/100ML 100 ML IV PRN (08:31)
[2020-12-10] MEDS: MICAFUNGIN 100MG+NS 100ML 100 ML IV SCH (13:23)
[2020-12-10] MEDS: FENTANYL 2500MCG+NS 250ML 250 ML IV SCH (14:58)
[2020-12-10] MEDS: DEXTROSE 50%-WATER 25 GM/50 ML VIAL IV SCH (23:45)
[2020-12-11] VITALS (58 sets, daily range): BP systolic 84–138; BP diastolic 44–87
[2020-12-11] MEDS: DOCUSATE SODIUM 100 MG CAP PO SCH ×3 (01:45→17:44)
[2020-12-11 03:38] LABS: ABG BASE EXCESS 32.4 mmol/L (-2.0-3.0); ABG OXYGEN SATURATION 87.7 % (95.0-99.0); ABG PCO2 143 mmHg (35-48)
[2020-12-11] MEDS: FUROSEMIDE 40MG VIAL IVP SCH ×3 (06:30→21:06)
[2020-12-11] MEDS: PROPOFOL 1000 MG/100 ML 100 ML IV SCH ×4 (06:53→22:01)
[2020-12-11] MEDS: BIOTENE 44.3 ML SOLUTION MM SCH ×2 (09:00→21:06)
[2020-12-11] MEDS: PANTOPRAZOLE 40 MG/VIAL IVP SCH (09:02)
[2020-12-11] MEDS: POLYETHYLENE GLYCOL 3350 17 GM POWD.PACK PO SCH (09:02)
[2020-12-11] MEDS: SOLU-MEDROL 125MG VIAL IVP SCH (09:02)
[2020-12-11] MEDS: SENNOSIDES 8.6 MG TABLET PO SCH (09:02)
[2020-12-11] MEDS ORDERED: MIDAZOLAM 100MG-0.9% NS 100ML 100ML BAG IV SCH (10:00)
[2020-12-11 10:16] LABS: BASOPHILS % (AUTO) 0.5 % (0.0-5.0); EOSINOPHILS % (AUTO) 1.7 % (0.0-8.0); HEMATOCRIT 39.7 % (42-54); LYMPHOCYTES % (AUTO) 6.6 % (21.0-51.0); MEAN CORPUSCULAR HEMOGLOBIN 31.3 pg (27.0-33.0); MEAN CORPUSCULAR HGB CONC 30.5 g/dL (32.0-36.0); MEAN CORPUSCULAR VOLUME 102.6 fL (79-99); MONOCYTES % (AUTO) 3.5 % (3.0-13.0); NEUTROPHILS % (AUTO) 84.9 % (40.0-77.0); NUCLEATED RED BLOOD CELLS 4.3 % (0.0-0.19); PLATELET COUNT (AUTO) 210 K/uL (130-400); RED BLOOD CELL COUNT(AUTO) 3.87 MIL/uL (4.50-6.20); RED CELL DISTRIBUTION WIDTH 14.4 % (11.0-15.5); WHITE BLOOD COUNT (AUTO) 12.9 K/uL (4.8-10.8)
[2020-12-11 10:36] LABS: ALBUMIN 1.8 g/dL (3.5-5.0); BILIRUBIN,TOTAL 0.6 mg/dL (0.2-1.0); CREATININE 0.5 mg/dL (0.5-1.5); POTASSIUM 3.6 mmol/L (3.5-5.1); TOTAL PROTEIN, SERUM 6.6 g/dL (6.0-8.3)
[2020-12-11] MEDS: MIDAZOLAM 100MG-0.9% NS 100ML 100 ML IV SCH (11:17)
[2020-12-11] MEDS: POTASSIUM CHLORIDE 20MEQ/100ML 100 ML IV PRN (11:22)
[2020-12-11 13:55] LABS: ABG HCO3 53.6 mmol/L (21.0-28.0); ABG PCO2 72 mmHg (35-48)
[2020-12-11] MEDS: MICAFUNGIN 100MG+NS 100ML 100 ML IV SCH (14:08)
[2020-12-11] MEDS: NOREPINEPHRIN 4MG/NS 250ML 250 ML IV SCH (14:09)
[2020-12-11] MEDS: VECURONIUM 10MG/10ML 50 MG in 0.9%NACL 50ML 50 ML IV SCH (17:21)
[2020-12-11] MEDS: ENOXAPARIN SODIUM 100 MG/1 ML SQ SCH (21:05)
[2020-12-11] MEDS: INSULIN REGULAR, HUMAN 3ML 100 UNIT in 0.9%NACL 100ML 99 ML IV PRN ×2 (22:06)
[2020-12-11] MEDS: DEXTROSE 50%-WATER 25 GM/50 ML VIAL IV SCH (23:45)
[2020-12-12] VITALS (85 sets, daily range): BP systolic 95–142; BP diastolic 43–85
[2020-12-12] MEDS: MIDAZOLAM 100MG-0.9% NS 100ML 100 ML IV SCH ×2 (00:43→18:41)
[2020-12-12] MEDS: DOCUSATE SODIUM 100 MG CAP PO SCH ×3 (00:51→17:45)
[2020-12-12] MEDS: VECURONIUM 10MG/10ML 50 MG in 0.9%NACL 50ML 50 ML IV SCH ×2 (01:28→19:22)
[2020-12-12] MEDS: NOREPINEPHRIN 4MG/NS 250ML 250 ML IV SCH ×3 (01:38→18:36)
[2020-12-12] MEDS: PROPOFOL 1000 MG/100 ML 100 ML IV SCH ×4 (03:43→22:58)
[2020-12-12 04:16] LABS: MAGNESIUM 2.1 mg/dL (1.80-2.40)
[2020-12-12 04:25] LABS: CRP QUANTITATIVE 266.7 mg/L (0.00-9.0)
[2020-12-12] MEDS: FUROSEMIDE 40MG VIAL IVP SCH ×3 (05:45→21:47)
[2020-12-12 05:51] LABS: BASOPHILS % (AUTO) 0.8 % (0.0-5.0); EOSINOPHILS % (AUTO) 0.5 % (0.0-8.0); HEMATOCRIT 33.4 % (42-54); LYMPHOCYTES % (AUTO) 8.3 % (21.0-51.0); MEAN CORPUSCULAR HEMOGLOBIN 30.7 pg (27.0-33.0); MEAN CORPUSCULAR HGB CONC 30.5 g/dL (32.0-36.0); MEAN CORPUSCULAR VOLUME 100.6 fL (79-99); MONOCYTES % (AUTO) 2.6 % (3.0-13.0); NEUTROPHILS % (AUTO) 78.6 % (40.0-77.0); NUCLEATED RED BLOOD CELLS 5.3 % (0.0-0.19); PLATELET COUNT (AUTO) 221 K/uL (130-400); RED BLOOD CELL COUNT(AUTO) 3.32 MIL/uL (4.50-6.20); RED CELL DISTRIBUTION WIDTH 14.8 % (11.0-15.5); WHITE BLOOD COUNT (AUTO) 13.3 K/uL (4.8-10.8)
[2020-12-12 06:02] LABS: CREATININE 0.5 mg/dL (0.5-1.5); POTASSIUM 3.2 mmol/L (3.5-5.1)
[2020-12-12 06:52] LABS: ABG BASE EXCESS 25.3 mmol/L (-2.0-3.0); ABG HCO3 54.3 mmol/L (21.0-28.0); ABG PCO2 73 mmHg (35-48)
[2020-12-12 07:12] LABS: BAND NEUTROPHILS % (MANUAL) 15 % (0-2); LYMPHOCYTES % (MANUAL) 9 % (22-44); MAN.DIFF COMMENT-IMPRESSION MANUAL DIFFERENTIAL; METAMYELOCYTES % 2 % (0-0); MONOCYTES % (MANUAL) 3 % (2-9); REACTIVE LYMPHOCYTES 1 % (0-0); SEGMENTED NEUTROPHILS % 70 % (40-70)
[2020-12-12 07:13] LABS: PLATELET MORPHOLOGY COMMENT GIANT PLTS PRESENT
[2020-12-12] MEDS ORDERED: POTASSIUM CHLORIDE 10% ELIXIR 20 MEQ/15 ML UDCUP PO SCH (07:45)
[2020-12-12] MEDS ORDERED: POTASSIUM CHLORIDE 10% ELIXIR 20 MEQ/15 ML UDCUP NG SCH (08:15)
[2020-12-12] MEDS: POLYETHYLENE GLYCOL 3350 17 GM POWD.PACK PO SCH ×2 (09:00→09:04)
[2020-12-12] MEDS: SENNOSIDES 8.6 MG TABLET PO SCH ×2 (09:00→09:05)
[2020-12-12] MEDS: PANTOPRAZOLE 40 MG/VIAL IVP SCH (09:03)
[2020-12-12] MEDS: SOLU-MEDROL 125MG VIAL IVP SCH (09:04)
[2020-12-12] MEDS: ENOXAPARIN SODIUM 100 MG/1 ML SQ SCH ×2 (09:04→21:48)
[2020-12-12] MEDS ORDERED: ALBUMIN (HUMAN) 25% 50 ML IV SCH (10:15)
[2020-12-12] MEDS: BIOTENE 44.3 ML SOLUTION MM SCH ×2 (10:38→21:49)
[2020-12-12] MEDS: ALBUMIN (HUMAN) 25% 50 ML IV SCH ×2 (13:42→21:42)
[2020-12-12] MEDS ORDERED: FENTANYL CITRATE PF 0.05 MG/ML 2,500 MCG in 0.9%NACL 100ML 250 ML IVPB SCH (18:15)
[2020-12-12] MEDS: INSULIN REGULAR, HUMAN 3ML 100 UNIT in 0.9%NACL 100ML 99 ML IV PRN ×2 (19:23)
[2020-12-12] MEDS: FENTANYL 2500MCG+NS 250ML 250 ML IV SCH (19:55)
[2020-12-12] MEDS: MIDODRINE HCL 5 MG TABLET GT SCH (21:46)
[2020-12-12] MEDS: DEXTROSE 50%-WATER 25 GM/50 ML VIAL IV SCH (23:45)
[2020-12-13] VITALS (85 sets, daily range): BP systolic 90–138; BP diastolic 53–91
[2020-12-13] MEDS: DOCUSATE SODIUM 100 MG CAP PO SCH ×3 (01:15→17:59)
[2020-12-13 04:56] LABS: BASOPHILS % (AUTO) 0.5 % (0.0-5.0); EOSINOPHILS % (AUTO) 0.4 % (0.0-8.0); HEMATOCRIT 31.3 % (42-54); LYMPHOCYTES % (AUTO) 8.9 % (21.0-51.0); MEAN CORPUSCULAR HEMOGLOBIN 30.5 pg (27.0-33.0); MEAN CORPUSCULAR HGB CONC 31.3 g/dL (32.0-36.0); MEAN CORPUSCULAR VOLUME 97.5 fL (79-99); MONOCYTES % (AUTO) 2.9 % (3.0-13.0); NEUTROPHILS % (AUTO) 80.6 % (40.0-77.0); NUCLEATED RED BLOOD CELLS 2.3 % (0.0-0.19); PLATELET COUNT (AUTO) 212 K/uL (130-400); RED BLOOD CELL COUNT(AUTO) 3.21 MIL/uL (4.50-6.20); RED CELL DISTRIBUTION WIDTH 15.1 % (11.0-15.5); WHITE BLOOD COUNT (AUTO) 12.6 K/uL (4.8-10.8)
[2020-12-13] MEDS: ALBUMIN (HUMAN) 25% 50 ML IV SCH ×2 (05:02→13:58)
[2020-12-13] MEDS: FUROSEMIDE 40MG VIAL IVP SCH ×3 (05:03→21:35)
[2020-12-13] MEDS: VECURONIUM 10MG/10ML 50 MG in 0.9%NACL 50ML 50 ML IV SCH ×2 (05:04→18:45)
[2020-12-13] MEDS: NOREPINEPHRIN 4MG/NS 250ML 250 ML IV SCH ×2 (05:08→19:23)
[2020-12-13 05:23] LABS: ALBUMIN 1.6 g/dL (3.5-5.0); BILIRUBIN,DIRECT 0.4 mg/dL (0.0-0.3); BILIRUBIN,TOTAL 0.8 mg/dL (0.2-1.0); CREATININE 0.3 mg/dL (0.5-1.5); MAGNESIUM 2.2 mg/dL (1.80-2.40); TOTAL PROTEIN, SERUM 6.1 g/dL (6.0-8.3)
[2020-12-13 05:26] LABS: POTASSIUM 2.8 mmol/L (3.5-5.1)
[2020-12-13 05:34] LABS: CRP QUANTITATIVE 477.5 mg/L (0.00-9.0)
[2020-12-13] MEDS: PROPOFOL 1000 MG/100 ML 100 ML IV SCH ×2 (06:15→15:02)
[2020-12-13 06:39] LABS: ABG BASE EXCESS 23.2 mmol/L (-2.0-3.0); ABG HCO3 51.4 mmol/L (21.0-28.0); ABG OXYGEN SATURATION 89.9 % (95.0-99.0); ABG PCO2 68 mmHg (35-48)
[2020-12-13] MEDS: POTASSIUM CHLORIDE 20MEQ/100ML 100 ML IV PRN ×6 (07:47→21:35)
[2020-12-13] MEDS ORDERED: POTASSIUM CHLORIDE 10% ELIXIR 20 MEQ/15 ML UDCUP PO SCH (08:15)
[2020-12-13] MEDS: SENNOSIDES 8.6 MG TABLET PO SCH (09:00)
[2020-12-13] MEDS: POLYETHYLENE GLYCOL 3350 17 GM POWD.PACK PO SCH (09:00)
[2020-12-13] MEDS: MIDODRINE HCL 5 MG TABLET GT SCH ×3 (09:52→20:16)
[2020-12-13] MEDS: PANTOPRAZOLE 40 MG/VIAL IVP SCH (09:52)
[2020-12-13] MEDS: ENOXAPARIN SODIUM 100 MG/1 ML SQ SCH ×2 (09:53→20:16)
[2020-12-13] MEDS: BIOTENE 44.3 ML SOLUTION MM SCH ×2 (09:57→20:50)
[2020-12-13] MEDS: ACETAZOLAMIDE SODIUM 500 MG VIAL IV SCH (10:05)
[2020-12-13] MEDS: MIDAZOLAM 100MG-0.9% NS 100ML 100 ML IV SCH (13:59)
[2020-12-13 14:09] LABS: CREATININE 0.4 mg/dL (0.5-1.5)
[2020-12-13 14:13] LABS: POTASSIUM 2.9 mmol/L (3.5-5.1)
[2020-12-13] MEDS: INSULIN REGULAR, HUMAN 3ML 100 UNIT in 0.9%NACL 100ML 99 ML IV PRN ×2 (18:47)
[2020-12-13] MEDS: FENTANYL 2500MCG+NS 250ML 250 ML IV SCH (19:21)
[2020-12-13] MEDS: BALSAM PERU/CASTOR OIL 60 GM TUBE TP SCH (20:51)
[2020-12-13] MEDS: DEXTROSE 50%-WATER 25 GM/50 ML VIAL IV SCH (22:47)
[2020-12-14] VITALS (70 sets, daily range): BP systolic 90–114; BP diastolic 52–76
[2020-12-14] MEDS: DOCUSATE SODIUM 100 MG CAP PO SCH (01:45)
[2020-12-14] MEDS: PROPOFOL 1000 MG/100 ML 100 ML IV SCH ×3 (04:39→22:11)
[2020-12-14 05:36] LABS: BASOPHILS % (AUTO) 0.9 % (0.0-5.0); EOSINOPHILS % (AUTO) 0.6 % (0.0-8.0); HEMATOCRIT 34.5 % (42-54); LYMPHOCYTES % (AUTO) 5.3 % (21.0-51.0); MEAN CORPUSCULAR HEMOGLOBIN 30.5 pg (27.0-33.0); MEAN CORPUSCULAR HGB CONC 30.4 g/dL (32.0-36.0); MEAN CORPUSCULAR VOLUME 100.3 fL (79-99); MONOCYTES % (AUTO) 1.8 % (3.0-13.0); NEUTROPHILS % (AUTO) 88.6 % (40.0-77.0); NUCLEATED RED BLOOD CELLS 3.8 % (0.0-0.19); PLATELET COUNT (AUTO) 199 K/uL (130-400); RED BLOOD CELL COUNT(AUTO) 3.44 MIL/uL (4.50-6.20); RED CELL DISTRIBUTION WIDTH 15.4 % (11.0-15.5); WHITE BLOOD COUNT (AUTO) 14.2 K/uL (4.8-10.8)
[2020-12-14] MEDS: FUROSEMIDE 40MG VIAL IVP SCH ×3 (05:42→21:32)
[2020-12-14 05:54] LABS: ALBUMIN 1.7 g/dL (3.5-5.0); BILIRUBIN,TOTAL 0.5 mg/dL (0.2-1.0); CREATININE 0.4 mg/dL (0.5-1.5); POTASSIUM 3.3 mmol/L (3.5-5.1); TOTAL PROTEIN, SERUM 6.4 g/dL (6.0-8.3)
[2020-12-14 06:35] LABS: CRP QUANTITATIVE 412.9 mg/L (0.00-9.0)
[2020-12-14] MEDS: SUCRALFATE 1 GM TABLET NG SCH ×4 (06:38→23:58)
[2020-12-14 07:14] LABS: ABG BASE EXCESS 17.6 mmol/L (-2.0-3.0); ABG HCO3 45.4 mmol/L (21.0-28.0); ABG OXYGEN SATURATION 82.5 % (95.0-99.0); ABG PCO2 71 mmHg (35-48)
[2020-12-14] MEDS: BALSAM PERU/CASTOR OIL 60 GM TUBE TP SCH ×3 (09:00→21:32)
[2020-12-14] MEDS: BIOTENE 44.3 ML SOLUTION MM SCH ×2 (09:00→21:32)
[2020-12-14] MEDS: MIDODRINE HCL 5 MG TABLET GT SCH ×3 (09:10→21:31)
[2020-12-14] MEDS: PANTOPRAZOLE 40 MG/VIAL IVP SCH ×2 (09:10→21:00)
[2020-12-14] MEDS: SENNOSIDES 8.6 MG TABLET PO SCH (09:10)
[2020-12-14] MEDS: DEXAMETHASONE SOD PHOSPHATE 4 MG/ML 1ML VIAL IVP SCH (09:10)
[2020-12-14] MEDS: ENOXAPARIN SODIUM 100 MG/1 ML SQ SCH (09:11)
[2020-12-14] MEDS: POLYETHYLENE GLYCOL 3350 17 GM POWD.PACK PO SCH (09:11)
[2020-12-14] MEDS: POTASSIUM CHLORIDE 20MEQ/100ML 100 ML IV PRN ×2 (09:11→17:09)
[2020-12-14] MEDS: VECURONIUM 10MG/10ML 50 MG in 0.9%NACL 50ML 50 ML IV SCH ×2 (09:13→18:35)
[2020-12-14] MEDS: MEROPENEM 1 GM VIAL IVP SCH ×2 (10:31→18:19)
[2020-12-14] MEDS: ACETAZOLAMIDE SODIUM 500 MG VIAL IV SCH (12:28)
[2020-12-14] MEDS: INSULIN REGULAR, HUMAN 3ML 100 UNIT in 0.9%NACL 100ML 99 ML IV PRN ×2 (14:00)
[2020-12-14] MEDS: MIDAZOLAM 100MG-0.9% NS 100ML 100 ML IV SCH (18:31)
[2020-12-14] MEDS: NOREPINEPHRIN 4MG/NS 250ML 250 ML IV SCH (22:14)
[2020-12-14] MEDS: FENTANYL 2500MCG+NS 250ML 250 ML IV SCH (22:25)
[2020-12-14] MEDS: DEXTROSE 50%-WATER 25 GM/50 ML VIAL IV SCH (23:45)
[2020-12-15] VITALS (72 sets, daily range): BP systolic 68–124; BP diastolic 38–78
[2020-12-15] MEDS: MEROPENEM 1 GM VIAL IVP SCH ×3 (02:11→17:46)
[2020-12-15 04:45] LABS: MAGNESIUM 2.2 mg/dL (1.80-2.40)
[2020-12-15 05:01] LABS: CRP QUANTITATIVE 501.5 mg/L (0.00-9.0)
[2020-12-15 05:34] LABS: BASOPHILS % (AUTO) 0.5 % (0.0-5.0); EOSINOPHILS % (AUTO) 0.2 % (0.0-8.0); HEMATOCRIT 31.6 % (42-54); LYMPHOCYTES % (AUTO) 4.9 % (21.0-51.0); MEAN CORPUSCULAR HEMOGLOBIN 31.3 pg (27.0-33.0); MONOCYTES % (AUTO) 1.9 % (3.0-13.0); NEUTROPHILS % (AUTO) 88.8 % (40.0-77.0); NUCLEATED RED BLOOD CELLS 3.2 % (0.0-0.19); PLATELET COUNT (AUTO) 207 K/uL (130-400); RED BLOOD CELL COUNT(AUTO) 3.13 MIL/uL (4.50-6.20); WHITE BLOOD COUNT (AUTO) 17.5 K/uL (4.8-10.8)
[2020-12-15 05:50] LABS: ALBUMIN 1.4 g/dL (3.5-5.0); BILIRUBIN,TOTAL 0.5 mg/dL (0.2-1.0); CREATININE 0.5 mg/dL (0.5-1.5); POTASSIUM 3.5 mmol/L (3.5-5.1); TOTAL PROTEIN, SERUM 6.1 g/dL (6.0-8.3)
[2020-12-15] MEDS: FUROSEMIDE 40MG VIAL IVP SCH ×3 (06:00→22:52)
[2020-12-15] MEDS: POTASSIUM CHLORIDE 20MEQ/100ML 100 ML IV PRN ×2 (06:00→17:46)
[2020-12-15] MEDS: SUCRALFATE 1 GM TABLET NG SCH ×3 (06:00→17:45)
[2020-12-15 06:34] LABS: ABG HCO3 46.1 mmol/L (21.0-28.0); ABG OXYGEN SATURATION 91.3 % (95.0-99.0); ABG PCO2 87 mmHg (35-48)
[2020-12-15] MEDS: ACETAZOLAMIDE SODIUM 500 MG VIAL IV SCH (09:22)
[2020-12-15] MEDS: MIDODRINE HCL 5 MG TABLET GT SCH ×3 (09:22→21:53)
[2020-12-15] MEDS: DEXAMETHASONE SOD PHOSPHATE 4 MG/ML 1ML VIAL IVP SCH (09:22)
[2020-12-15] MEDS: ENOXAPARIN SODIUM 100 MG/1 ML SQ SCH (09:23)
[2020-12-15] MEDS: BALSAM PERU/CASTOR OIL 60 GM TUBE TP SCH ×3 (09:24→21:54)
[2020-12-15] MEDS: BIOTENE 44.3 ML SOLUTION MM SCH ×2 (09:24→21:52)
[2020-12-15] MEDS: PROPOFOL 1000 MG/100 ML 100 ML IV SCH ×2 (10:00→15:05)
[2020-12-15] MEDS: PANTOPRAZOLE 40 MG/VIAL IVP SCH ×2 (11:02→21:53)
[2020-12-15] MEDS: NOREPINEPHRIN 4MG/NS 250ML 250 ML IV SCH ×3 (11:30→20:18)
[2020-12-15] MEDS: VECURONIUM 10MG/10ML 50 MG in 0.9%NACL 50ML 50 ML IV SCH (11:34)
[2020-12-15] MEDS: INSULIN REGULAR, HUMAN 3ML 100 UNIT in 0.9%NACL 100ML 99 ML IV PRN ×2 (15:06)
[2020-12-15] MEDS: MIDAZOLAM 100MG-0.9% NS 100ML 100 ML IV SCH (15:07)
[2020-12-15] MEDS: FENTANYL 2500MCG+NS 250ML 250 ML IV SCH (22:57)
[2020-12-16] VITALS (54 sets, daily range): BP systolic 71–120; BP diastolic 32–72
[2020-12-16] MEDS ORDERED: DEXTROSE 50%-WATER 50 ML DISP.SYRIN IV PRN (00:15)
[2020-12-16] MEDS ORDERED: GLUCAGON 1MG KIT 1 MG ML IM PRN (00:15)
[2020-12-16] MEDS: POTASSIUM CHLORIDE 20MEQ/100ML 100 ML IV PRN ×3 (00:16→08:54)
[2020-12-16] MEDS: SUCRALFATE 1 GM TABLET NG SCH ×5 (00:16→23:40)
[2020-12-16] MEDS: FENTANYL 2500MCG+NS 250ML 250 ML IV SCH (01:31)
[2020-12-16] MEDS: MEROPENEM 1 GM VIAL IVP SCH ×3 (01:46→17:25)
[2020-12-16] MEDS: PROPOFOL 1000 MG/100 ML 100 ML IV SCH ×3 (02:18→18:18)
[2020-12-16] MEDS: NOREPINEPHRIN 4MG/NS 250ML 250 ML IV SCH ×2 (03:24→18:19)
[2020-12-16] MEDS: FUROSEMIDE 40MG VIAL IVP SCH ×3 (05:17→22:05)
[2020-12-16 06:47] LABS: ABG BASE EXCESS 17.8 mmol/L (-2.0-3.0); ABG HCO3 46.5 mmol/L (21.0-28.0); ABG OXYGEN SATURATION 89.6 % (95.0-99.0); ABG PCO2 72 mmHg (35-48)
[2020-12-16] MEDS: VECURONIUM 10MG/10ML 50 MG in 0.9%NACL 50ML 50 ML IV SCH (06:51)
[2020-12-16 06:53] LABS: BASOPHILS % (AUTO) 0.6 % (0.0-5.0); EOSINOPHILS % (AUTO) 0.3 % (0.0-8.0); HEMATOCRIT 32.3 % (42-54); LYMPHOCYTES % (AUTO) 5.7 % (21.0-51.0); MEAN CORPUSCULAR HEMOGLOBIN 30.4 pg (27.0-33.0); MEAN CORPUSCULAR HGB CONC 30.7 g/dL (32.0-36.0); MEAN CORPUSCULAR VOLUME 99.1 fL (79-99); MONOCYTES % (AUTO) 2.4 % (3.0-13.0); NEUTROPHILS % (AUTO) 83.5 % (40.0-77.0); NUCLEATED RED BLOOD CELLS 2.2 % (0.0-0.19); PLATELET COUNT (AUTO) 243 K/uL (130-400); RED BLOOD CELL COUNT(AUTO) 3.26 MIL/uL (4.50-6.20); RED CELL DISTRIBUTION WIDTH 16.5 % (11.0-15.5); WHITE BLOOD COUNT (AUTO) 17.8 K/uL (4.8-10.8)
[2020-12-16 07:06] LABS: ALBUMIN 1.3 g/dL (3.5-5.0); BILIRUBIN,TOTAL 0.5 mg/dL (0.2-1.0); CREATININE 0.5 mg/dL (0.5-1.5); POTASSIUM 3.7 mmol/L (3.5-5.1); TOTAL PROTEIN, SERUM 6.5 g/dL (6.0-8.3)
[2020-12-16 07:19] LABS: CRP QUANTITATIVE 404.8 mg/L (0.00-9.0)
[2020-12-16] MEDS: ACETAZOLAMIDE SODIUM 500 MG VIAL IV SCH (08:50)
[2020-12-16] MEDS: DEXAMETHASONE SOD PHOSPHATE 4 MG/ML 1ML VIAL IVP SCH (08:50)
[2020-12-16] MEDS: MIDODRINE HCL 5 MG TABLET GT SCH ×3 (08:50→21:55)
[2020-12-16] MEDS: PANTOPRAZOLE 40 MG/VIAL IVP SCH ×2 (08:50→21:55)
[2020-12-16] MEDS: ENOXAPARIN SODIUM 100 MG/1 ML SQ SCH (08:51)
[2020-12-16] MEDS: BIOTENE 44.3 ML SOLUTION MM SCH ×2 (08:52→21:57)
[2020-12-16] MEDS: BALSAM PERU/CASTOR OIL 60 GM TUBE TP SCH ×3 (08:53→21:58)
[2020-12-16] MEDS: INSULIN REGULAR, HUMAN 3ML 100 UNIT in 0.9%NACL 100ML 99 ML IV PRN ×2 (11:32)
[2020-12-16] MEDS: MIDAZOLAM 100MG-0.9% NS 100ML 100 ML IV SCH (11:34)
[2020-12-17] VITALS (24 sets, daily range): BP systolic 79–121; BP diastolic 52–80
[2020-12-17] MEDS: MEROPENEM 1 GM VIAL IVP SCH ×3 (01:10→17:49)
[2020-12-17] MEDS: VECURONIUM 10MG/10ML 50 MG in 0.9%NACL 50ML 50 ML IV SCH (01:17)
[2020-12-17] MEDS: NOREPINEPHRIN 4MG/NS 250ML 250 ML IV SCH ×2 (04:04→21:16)
[2020-12-17] MEDS: PROPOFOL 1000 MG/100 ML 100 ML IV SCH ×3 (04:07→18:58)
[2020-12-17] MEDS: SUCRALFATE 1 GM TABLET NG SCH ×3 (05:26→17:49)
[2020-12-17] MEDS: FUROSEMIDE 40MG VIAL IVP SCH ×3 (05:26→21:14)
[2020-12-17] MEDS: FENTANYL 2500MCG+NS 250ML 250 ML IV SCH (06:09)
[2020-12-17 06:10] LABS: BASOPHILS % (AUTO) 0.7 % (0.0-5.0); EOSINOPHILS % (AUTO) 0.2 % (0.0-8.0); LYMPHOCYTES % (AUTO) 4.6 % (21.0-51.0); MEAN CORPUSCULAR HEMOGLOBIN 30.4 pg (27.0-33.0); MEAN CORPUSCULAR HGB CONC 31.2 g/dL (32.0-36.0); MEAN CORPUSCULAR VOLUME 97.3 fL (79-99); MONOCYTES % (AUTO) 2.3 % (3.0-13.0); NEUTROPHILS % (AUTO) 88.1 % (40.0-77.0); NUCLEATED RED BLOOD CELLS 1.1 % (0.0-0.19); PLATELET COUNT (AUTO) 269 K/uL (130-400); RED BLOOD CELL COUNT(AUTO) 3.39 MIL/uL (4.50-6.20); RED CELL DISTRIBUTION WIDTH 16.3 % (11.0-15.5); WHITE BLOOD COUNT (AUTO) 18.8 K/uL (4.8-10.8)
[2020-12-17] MEDS: MIDAZOLAM 100MG-0.9% NS 100ML 100 ML IV SCH (06:18)
[2020-12-17 06:42] LABS: MAGNESIUM 2.6 mg/dL (1.80-2.40)
[2020-12-17 06:48] LABS: ABG BASE EXCESS 16.3 mmol/L (-2.0-3.0); ABG HCO3 46.8 mmol/L (21.0-28.0); ABG PCO2 86 mmHg (35-48)
[2020-12-17 07:00] LABS: POTASSIUM 4.1 mmol/L (3.5-5.1)
[2020-12-17 07:01] LABS: ALBUMIN 1.2 g/dL (3.5-5.0); BILIRUBIN,TOTAL 0.7 mg/dL (0.2-1.0); CREATININE 0.3 mg/dL (0.5-1.5); TOTAL PROTEIN, SERUM 5.8 g/dL (6.0-8.3)
[2020-12-17 07:26] LABS: CRP QUANTITATIVE 590.3 mg/L (0.00-9.0)
[2020-12-17] MEDS: DEXAMETHASONE SOD PHOSPHATE 4 MG/ML 1ML VIAL IVP SCH (08:37)
[2020-12-17] MEDS: PANTOPRAZOLE 40 MG/VIAL IVP SCH ×2 (08:37→21:01)
[2020-12-17] MEDS: ENOXAPARIN SODIUM 40 MG/0.4 ML SYRINGE SQ SCH (08:38)
[2020-12-17] MEDS: MIDODRINE HCL 5 MG TABLET GT SCH ×3 (08:38→20:52)
[2020-12-17] MEDS: BALSAM PERU/CASTOR OIL 60 GM TUBE TP SCH ×3 (10:40→21:02)
[2020-12-17] MEDS: BIOTENE 44.3 ML SOLUTION MM SCH ×2 (10:55→21:02)
[2020-12-18] VITALS (28 sets, daily range): BP systolic 79–124; BP diastolic 43–72
[2020-12-18] MEDS: SUCRALFATE 1 GM TABLET NG SCH ×5 (00:41→23:29)
[2020-12-18] MEDS: PROPOFOL 1000 MG/100 ML 100 ML IV SCH (00:54)
[2020-12-18] MEDS: MEROPENEM 1 GM VIAL IVP SCH ×3 (01:19→17:53)
[2020-12-18] MEDS: VECURONIUM 10MG/10ML 50 MG in 0.9%NACL 50ML 50 ML IV SCH (01:27)
[2020-12-18] MEDS ORDERED: VANCOMYCIN PROTOCOL PER PHARMACY IV SCH (04:00)
[2020-12-18 04:37] LABS: ABG BASE EXCESS 16.3 mmol/L (-2.0-3.0); ABG HCO3 46.7 mmol/L (21.0-28.0); ABG OXYGEN SATURATION 94.2 % (95.0-99.0); ABG PCO2 99 mmHg (35-48)
[2020-12-18] MEDS: NOREPINEPHRIN 4MG/NS 250ML 250 ML IV SCH (04:39)
[2020-12-18 04:46] LABS: CRP QUANTITATIVE 626.5 mg/L (0.00-9.0)
[2020-12-18] MEDS: FUROSEMIDE 40MG VIAL IVP SCH (05:21)
[2020-12-18 05:29] LABS: BASOPHILS % (AUTO) 0.1 % (0.0-5.0); EOSINOPHILS % (AUTO) 0.2 % (0.0-8.0); HEMATOCRIT 36.7 % (42-54); LYMPHOCYTES % (AUTO) 3.5 % (21.0-51.0); MEAN CORPUSCULAR HEMOGLOBIN 29.8 pg (27.0-33.0); MEAN CORPUSCULAR HGB CONC 29.4 g/dL (32.0-36.0); MEAN CORPUSCULAR VOLUME 101.1 fL (79-99); MONOCYTES % (AUTO) 1.8 % (3.0-13.0); NUCLEATED RED BLOOD CELLS 2.2 % (0.0-0.19); PLATELET COUNT (AUTO) 291 K/uL (130-400); RED BLOOD CELL COUNT(AUTO) 3.63 MIL/uL (4.50-6.20); RED CELL DISTRIBUTION WIDTH 16.3 % (11.0-15.5); WHITE BLOOD COUNT (AUTO) 20.1 K/uL (4.8-10.8)
[2020-12-18] MEDS ORDERED: FENTANYL 2500MCG+NS 250ML 250 ML IV ONE (05:32)
[2020-12-18] MEDS: FENTANYL 2500MCG+NS 250ML 250 ML IV SCH (05:35)
[2020-12-18 05:44] LABS: ALBUMIN 1.2 g/dL (3.5-5.0); BILIRUBIN,TOTAL 0.6 mg/dL (0.2-1.0); CREATININE 0.7 mg/dL (0.5-1.5); POTASSIUM 4.3 mmol/L (3.5-5.1); TOTAL PROTEIN, SERUM 6.7 g/dL (6.0-8.3)
[2020-12-18] MEDS ORDERED: VANCOMYCIN 1G 2 GM in 0.9% NACL 500ML IV.SOLN 500 ML IV SCH (06:00)
[2020-12-18] MEDS: MIDAZOLAM 100MG-0.9% NS 100ML 100 ML IV SCH (06:59)
[2020-12-18] MEDS ORDERED: COMPOUND IV REFRIGERATED 1 EACH IVSOLN MISC PRN (07:15)
[2020-12-18] MEDS ORDERED: PHENYLEPHRINE HCL 50 MG in 0.9% NACL 250ML 250 ML IV PRN (08:00)
[2020-12-18] MEDS: DEXAMETHASONE SOD PHOSPHATE 4 MG/ML 1ML VIAL IVP SCH (08:03)
[2020-12-18] MEDS: PANTOPRAZOLE 40 MG/VIAL IVP SCH ×2 (08:03→21:36)
[2020-12-18] MEDS: ENOXAPARIN SODIUM 40 MG/0.4 ML SYRINGE SQ SCH (08:04)
[2020-12-18] MEDS: BALSAM PERU/CASTOR OIL 60 GM TUBE TP SCH ×3 (08:07→21:37)
[2020-12-18] MEDS: BIOTENE 44.3 ML SOLUTION MM SCH ×2 (08:09→21:37)
[2020-12-18] MEDS: PHENYLEPHRINE HCL 50 MG in 0.9% NACL 250ML 250 ML IV PRN (08:33)
[2020-12-18] MEDS ORDERED: ALBUMIN (HUMAN) 25% 50 ML IV SCH (08:45)
[2020-12-18] MEDS ORDERED: ALBUMIN (HUMAN) 25% 100 ML IV ONE (09:39)
[2020-12-18] MEDS: FLUCONAZOLE 200 MG/NS 100 ML 100 ML IV SCH (10:42)
[2020-12-18] MEDS: MIDODRINE HCL 5 MG TABLET GT SCH ×3 (10:42→21:36)
[2020-12-18] MEDS: ALBUMIN (HUMAN) 25% 50 ML IV SCH ×2 (10:58→19:00)
[2020-12-18] MEDS: VANCOMYCIN 1G 1.25 GM in 0.9% NACL 250ML 250 ML IV SCH (17:53)
[2020-12-18] MEDS ORDERED: PHENYLEPHRINE HCL 10 MG/ML 1ML VIAL IV ONE (23:10)
[2020-12-18] MEDS ORDERED: 0.9% NACL 250ML 250 ML IV ONE (23:12)
[2020-12-19] VITALS (44 sets, daily range): BP systolic 81–167; BP diastolic 48–96
[2020-12-19] MEDS: VANCOMYCIN 1G 1.25 GM in 0.9% NACL 250ML 250 ML IV SCH ×2 (01:31→09:26)
[2020-12-19] MEDS: MEROPENEM 1 GM VIAL IVP SCH ×3 (01:45→17:29)
[2020-12-19] MEDS: ALBUMIN (HUMAN) 25% 50 ML IV SCH (02:47)
[2020-12-19] MEDS: SUCRALFATE 1 GM TABLET NG SCH ×3 (05:09→17:29)
[2020-12-19 05:37] LABS: BASOPHILS % (AUTO) 0.4 % (0.0-5.0); EOSINOPHILS % (AUTO) 0.1 % (0.0-8.0); HEMATOCRIT 27.2 % (42-54); LYMPHOCYTES % (AUTO) 4.4 % (21.0-51.0); MEAN CORPUSCULAR HEMOGLOBIN 30.2 pg (27.0-33.0); MEAN CORPUSCULAR HGB CONC 29.8 g/dL (32.0-36.0); MEAN CORPUSCULAR VOLUME 101.5 fL (79-99); MONOCYTES % (AUTO) 2.3 % (3.0-13.0); NUCLEATED RED BLOOD CELLS 0.4 % (0.0-0.19); PLATELET COUNT (AUTO) 319 K/uL (130-400); RED BLOOD CELL COUNT(AUTO) 2.68 MIL/uL (4.50-6.20); RED CELL DISTRIBUTION WIDTH 17.1 % (11.0-15.5); WHITE BLOOD COUNT (AUTO) 19.7 K/uL (4.8-10.8)
[2020-12-19 05:45] LABS: CRP QUANTITATIVE 311.4 mg/L (0.00-9.0)
[2020-12-19 05:54] LABS: ALBUMIN 1.7 g/dL (3.5-5.0); BILIRUBIN,TOTAL 0.6 mg/dL (0.2-1.0); CREATININE 0.6 mg/dL (0.5-1.5); POTASSIUM 4.2 mmol/L (3.5-5.1); TOTAL PROTEIN, SERUM 6.2 g/dL (6.0-8.3)
[2020-12-19 07:06] LABS: ABG BASE EXCESS 13.8 mmol/L (-2.0-3.0); ABG HCO3 42.8 mmol/L (21.0-28.0); ABG OXYGEN SATURATION 97.9 % (95.0-99.0); ABG PCO2 73 mmHg (35-48)
[2020-12-19] MEDS: PANTOPRAZOLE 40 MG/VIAL IVP SCH ×2 (08:23→21:14)
[2020-12-19] MEDS: DEXAMETHASONE SOD PHOSPHATE 4 MG/ML 1ML VIAL IVP SCH (08:23)
[2020-12-19] MEDS: ENOXAPARIN SODIUM 40 MG/0.4 ML SYRINGE SQ SCH (08:24)
[2020-12-19] MEDS: BIOTENE 44.3 ML SOLUTION MM SCH ×2 (09:00→21:12)
[2020-12-19] MEDS: INSULIN REGULAR, HUMAN 3ML 100 UNIT in 0.9%NACL 100ML 99 ML IV PRN ×2 (09:26)
[2020-12-19] MEDS: MIDODRINE HCL 5 MG TABLET GT SCH ×3 (09:27→21:15)
[2020-12-19] MEDS: BALSAM PERU/CASTOR OIL 60 GM TUBE TP SCH ×3 (09:28→21:12)
[2020-12-19] MEDS: FLUCONAZOLE 200 MG/NS 100 ML 100 ML IV SCH (10:12)
[2020-12-19] MEDS: PHENYLEPHRINE HCL 50 MG in 0.9% NACL 250ML 250 ML IV PRN (14:22)
[2020-12-19] MEDS: VANCOMYCIN 750MG + NS 250 ML IV SCH ×2 (16:57)
[2020-12-19] MEDS ORDERED: FENTANYL 2500MCG+NS 250ML 250 ML IV ONE (20:41)
[2020-12-20] VITALS (57 sets, daily range): BP systolic 82–135; BP diastolic 46–91
[2020-12-20] MEDS: VANCOMYCIN 750MG + NS 250 ML IV SCH ×6 (01:00→16:53)
[2020-12-20] MEDS: MEROPENEM 1 GM VIAL IVP SCH ×3 (01:45→18:19)
[2020-12-20 03:54] LABS: BASOPHILS % (AUTO) 0.2 % (0.0-5.0); HEMATOCRIT 28.7 % (42-54); LYMPHOCYTES % (AUTO) 3.1 % (21.0-51.0); MEAN CORPUSCULAR HEMOGLOBIN 30.6 pg (27.0-33.0); MEAN CORPUSCULAR HGB CONC 30.7 g/dL (32.0-36.0); MEAN CORPUSCULAR VOLUME 99.7 fL (79-99); NUCLEATED RED BLOOD CELLS 0.3 % (0.0-0.19); PLATELET COUNT (AUTO) 315 K/uL (130-400); RED BLOOD CELL COUNT(AUTO) 2.88 MIL/uL (4.50-6.20); RED CELL DISTRIBUTION WIDTH 16.8 % (11.0-15.5); WHITE BLOOD COUNT (AUTO) 21.3 K/uL (4.8-10.8)
[2020-12-20 04:18] LABS: CREATININE 0.4 mg/dL (0.5-1.5); CRP QUANTITATIVE 177.1 mg/L (0.00-9.0)
[2020-12-20] MEDS: SUCRALFATE 1 GM TABLET NG SCH ×4 (06:00→18:15)
[2020-12-20 07:14] LABS: ABG BASE EXCESS 18.1 mmol/L (-2.0-3.0); ABG HCO3 46.3 mmol/L (21.0-28.0); ABG OXYGEN SATURATION 94.6 % (95.0-99.0); ABG PCO2 68 mmHg (35-48)
[2020-12-20] MEDS: BIOTENE 44.3 ML SOLUTION MM SCH ×2 (08:29→20:58)
[2020-12-20] MEDS: FLUCONAZOLE 200 MG/NS 100 ML 100 ML IV SCH (08:29)
[2020-12-20] MEDS: DEXAMETHASONE SOD PHOSPHATE 4 MG/ML 1ML VIAL IVP SCH (08:29)
[2020-12-20] MEDS: ENOXAPARIN SODIUM 40 MG/0.4 ML SYRINGE SQ SCH (08:29)
[2020-12-20] MEDS: PANTOPRAZOLE 40 MG/VIAL IVP SCH ×2 (08:29→20:58)
[2020-12-20] MEDS: BALSAM PERU/CASTOR OIL 60 GM TUBE TP SCH ×3 (08:31→20:58)
[2020-12-20] MEDS: MIDODRINE HCL 5 MG TABLET GT SCH ×3 (09:18→20:58)
[2020-12-20] MEDS: MIDAZOLAM 100MG-0.9% NS 100ML 100 ML IV SCH (15:25)
[2020-12-20 18:02] LABS: APPEARANCE,URINE Cloudy (CLEAR); BILIRUBIN,URINE Negative (NEGATIVE); COLOR,URINE Yellow (YELLOW); GLUCOSE, URINE (UA) Negative (NEGATIVE); KETONES,URINE Negative (NEGATIVE); LEUKOCYTE ESTERASE ,URINE Small (NEGATIVE); NITRATE,URINE Negative (NEGATIVE); OCCULT BLOOD,URINE Moderate (NEGATIVE); PH,URINE 5.5 (5.0-8.0); PROTEIN,URINE POS 1+ mg/dL (NEGATIVE)
[2020-12-20] MEDS: PHENYLEPHRINE HCL 50 MG in 0.9% NACL 250ML 250 ML IV PRN (18:23)
[2020-12-20 18:52] LABS: BACTERIA,URINE Few /HPF (None Seen); YEAST,URINE BUDDING Many /HPF (None Seen)
[2020-12-21] VITALS (33 sets, daily range): BP systolic 79–127; BP diastolic 46–77
[2020-12-21] MEDS: SUCRALFATE 1 GM TABLET NG SCH ×4 (00:29→17:14)
[2020-12-21] MEDS ORDERED: FENTANYL 2500MCG+NS 250ML 250 ML IV ONE ×2 (01:11→20:00)
[2020-12-21] MEDS: VANCOMYCIN 750MG + NS 250 ML IV SCH ×6 (01:14→18:30)
[2020-12-21] MEDS: MEROPENEM 1 GM VIAL IVP SCH ×3 (01:45→17:14)
[2020-12-21 06:05] LABS: BASOPHILS % (AUTO) 0.2 % (0.0-5.0); HEMATOCRIT 30.3 % (42-54); LYMPHOCYTES % (AUTO) 3.9 % (21.0-51.0); MONOCYTES % (AUTO) 2.3 % (3.0-13.0); NEUTROPHILS % (AUTO) 91.2 % (40.0-77.0); NUCLEATED RED BLOOD CELLS 0.4 % (0.0-0.19); PLATELET COUNT (AUTO) 423 K/uL (130-400); RED BLOOD CELL COUNT(AUTO) 3.03 MIL/uL (4.50-6.20); RED CELL DISTRIBUTION WIDTH 17.2 % (11.0-15.5); WHITE BLOOD COUNT (AUTO) 22.2 K/uL (4.8-10.8)
[2020-12-21 06:11] LABS: CREATININE 0.4 mg/dL (0.5-1.5); POTASSIUM 4.1 mmol/L (3.5-5.1)
[2020-12-21 06:59] LABS: ABG BASE EXCESS 14.7 mmol/L (-2.0-3.0); ABG HCO3 42.4 mmol/L (21.0-28.0); ABG OXYGEN SATURATION 93.3 % (95.0-99.0); ABG PCO2 65 mmHg (35-48)
[2020-12-21] MEDS: BIOTENE 44.3 ML SOLUTION MM SCH ×2 (08:01→20:43)
[2020-12-21] MEDS: BALSAM PERU/CASTOR OIL 60 GM TUBE TP SCH ×3 (08:02→20:43)
[2020-12-21] MEDS: ENOXAPARIN SODIUM 40 MG/0.4 ML SYRINGE SQ SCH (08:42)
[2020-12-21] MEDS: PANTOPRAZOLE 40 MG/VIAL IVP SCH ×2 (08:43→20:42)
[2020-12-21] MEDS: FLUCONAZOLE 200 MG/NS 100 ML 100 ML IV SCH (08:44)
[2020-12-21] MEDS: MIDODRINE HCL 5 MG TABLET GT SCH ×3 (08:44→20:43)
[2020-12-21] MEDS: DEXAMETHASONE SOD PHOSPHATE 4 MG/ML 1ML VIAL IVP SCH (08:44)
[2020-12-21] MEDS: PHENYLEPHRINE HCL 50 MG in 0.9% NACL 250ML 250 ML IV PRN (16:58)
[2020-12-21] MEDS: MIDAZOLAM 100MG-0.9% NS 100ML 100 ML IV SCH (18:16)
[2020-12-22] VITALS (77 sets, daily range): BP systolic 80–118; BP diastolic 47–85
[2020-12-22] MEDS: SUCRALFATE 1 GM TABLET NG SCH ×4 (00:10→18:00)
[2020-12-22] MEDS: VANCOMYCIN 750MG + NS 250 ML IV SCH ×6 (01:00→16:55)
[2020-12-22] MEDS: MEROPENEM 1 GM VIAL IVP SCH ×3 (01:45→16:54)
[2020-12-22 06:04] LABS: BASOPHILS % (AUTO) 0.2 % (0.0-5.0); HEMATOCRIT 32.1 % (42-54); LYMPHOCYTES % (AUTO) 3.9 % (21.0-51.0); MEAN CORPUSCULAR HEMOGLOBIN 29.9 pg (27.0-33.0); MEAN CORPUSCULAR VOLUME 106.6 fL (79-99); MONOCYTES % (AUTO) 2.4 % (3.0-13.0); NEUTROPHILS % (AUTO) 91.8 % (40.0-77.0); NUCLEATED RED BLOOD CELLS 0.5 % (0.0-0.19); PLATELET COUNT (AUTO) 446 K/uL (130-400); RED BLOOD CELL COUNT(AUTO) 3.01 MIL/uL (4.50-6.20); RED CELL DISTRIBUTION WIDTH 16.8 % (11.0-15.5); WHITE BLOOD COUNT (AUTO) 20.4 K/uL (4.8-10.8)
[2020-12-22 06:08] LABS: CREATININE 0.3 mg/dL (0.5-1.5); MAGNESIUM 2.3 mg/dL (1.80-2.40); POTASSIUM 4.5 mmol/L (3.5-5.1)
[2020-12-22 07:35] LABS: ABG BASE EXCESS 12.6 mmol/L (-2.0-3.0); ABG HCO3 46.9 mmol/L (21.0-28.0); ABG OXYGEN SATURATION 90.5 % (95.0-99.0); ABG PCO2 126 mmHg (35-48)
[2020-12-22] MEDS: PROPOFOL 1000 MG/100 ML 100 ML IV SCH (07:50)
[2020-12-22] MEDS: FLUCONAZOLE 200 MG/NS 100 ML 100 ML IV SCH (08:09)
[2020-12-22] MEDS: PHENYLEPHRINE HCL 50 MG in 0.9% NACL 250ML 250 ML IV PRN ×3 (08:15→19:42)
[2020-12-22] MEDS: BALSAM PERU/CASTOR OIL 60 GM TUBE TP SCH ×3 (08:47→20:48)
[2020-12-22] MEDS: ENOXAPARIN SODIUM 40 MG/0.4 ML SYRINGE SQ SCH (09:06)
[2020-12-22] MEDS: BIOTENE 44.3 ML SOLUTION MM SCH ×2 (09:07→20:48)
[2020-12-22] MEDS: PANTOPRAZOLE 40 MG/VIAL IVP SCH ×2 (09:07→20:48)
[2020-12-22] MEDS: MIDODRINE HCL 5 MG TABLET GT SCH ×3 (09:07→20:48)
[2020-12-22] MEDS: DEXAMETHASONE SOD PHOSPHATE 4 MG/ML 1ML VIAL IVP SCH (09:07)
[2020-12-22] MEDS ORDERED: FENTANYL 2500MCG+NS 250ML 250 ML IV ONE (12:09)
[2020-12-22] MEDS: FUROSEMIDE 20MG VIAL IV SCH (14:36)
[2020-12-22] MEDS: MIDAZOLAM 100MG-0.9% NS 100ML 100 ML IV SCH (19:23)
[2020-12-23] VITALS (69 sets, daily range): BP systolic 74–180; BP diastolic 44–107
[2020-12-23] MEDS: SUCRALFATE 1 GM TABLET NG SCH ×4 (00:01→17:10)
[2020-12-23] MEDS: VANCOMYCIN 750MG + NS 250 ML IV SCH ×6 (01:00→17:10)
[2020-12-23] MEDS: MEROPENEM 1 GM VIAL IVP SCH ×3 (01:45→17:10)
[2020-12-23] MEDS: FUROSEMIDE 20MG VIAL IV SCH (02:00)
[2020-12-23] MEDS ORDERED: FENTANYL 2500MCG+NS 250ML 250 ML IV ONE ×2 (04:06→21:25)
[2020-12-23 07:27] LABS: ABG BASE EXCESS 12.9 mmol/L (-2.0-3.0); ABG HCO3 42.1 mmol/L (21.0-28.0); ABG OXYGEN SATURATION 94.9 % (95.0-99.0); ABG PCO2 75 mmHg (35-48)
[2020-12-23 07:44] LABS: BASOPHILS % (AUTO) 0.2 % (0.0-5.0); EOSINOPHILS % (AUTO) 0.2 % (0.0-8.0); HEMATOCRIT 28.8 % (42-54); LYMPHOCYTES % (AUTO) 2.6 % (21.0-51.0); MEAN CORPUSCULAR HGB CONC 30.2 g/dL (32.0-36.0); MEAN CORPUSCULAR VOLUME 102.5 fL (79-99); MONOCYTES % (AUTO) 1.5 % (3.0-13.0); NEUTROPHILS % (AUTO) 94.6 % (40.0-77.0); NUCLEATED RED BLOOD CELLS 0.2 % (0.0-0.19); PLATELET COUNT (AUTO) 443 K/uL (130-400); RED BLOOD CELL COUNT(AUTO) 2.81 MIL/uL (4.50-6.20); RED CELL DISTRIBUTION WIDTH 16.7 % (11.0-15.5); WHITE BLOOD COUNT (AUTO) 25.2 K/uL (4.8-10.8)
[2020-12-23 07:58] LABS: CREATININE 0.4 mg/dL (0.5-1.5); POTASSIUM 3.1 mmol/L (3.5-5.1)
[2020-12-23] MEDS: DEXAMETHASONE SOD PHOSPHATE 4 MG/ML 1ML VIAL IVP SCH (08:34)
[2020-12-23] MEDS: FLUCONAZOLE 200 MG/NS 100 ML 100 ML IV SCH (08:34)
[2020-12-23] MEDS: PANTOPRAZOLE 40 MG/VIAL IVP SCH ×2 (08:34→21:27)
[2020-12-23] MEDS: MIDODRINE HCL 5 MG TABLET GT SCH ×3 (08:34→21:27)
[2020-12-23] MEDS: ENOXAPARIN SODIUM 40 MG/0.4 ML SYRINGE SQ SCH (08:35)
[2020-12-23] MEDS: BIOTENE 44.3 ML SOLUTION MM SCH ×2 (08:35→21:23)
[2020-12-23] MEDS: BALSAM PERU/CASTOR OIL 60 GM TUBE TP SCH ×3 (08:36→21:23)
[2020-12-23] MEDS: PHENYLEPHRINE HCL 50 MG in 0.9% NACL 250ML 250 ML IV PRN ×2 (10:43→15:21)
[2020-12-23] MEDS: POTASSIUM CHLORIDE 20MEQ/100ML 100 ML IV PRN (11:20)
[2020-12-23] MEDS: MIDAZOLAM 100MG-0.9% NS 100ML 100 ML IV SCH (14:29)
[2020-12-23] MEDS: INSULIN REGULAR, HUMAN 3ML 100 UNIT in 0.9%NACL 100ML 99 ML IV PRN ×2 (15:20)
[2020-12-24] VITALS (83 sets, daily range): BP systolic 84–123; BP diastolic 50–76
[2020-12-24] MEDS: VANCOMYCIN 750MG + NS 250 ML IV SCH ×6 (01:00→16:23)
[2020-12-24] MEDS: MEROPENEM 1 GM VIAL IVP SCH ×3 (01:45→17:35)
[2020-12-24] MEDS: SUCRALFATE 1 GM TABLET NG SCH ×4 (06:20→17:34)
[2020-12-24 06:35] LABS: BASOPHILS % (AUTO) 0.2 % (0.0-5.0); CREATININE 0.3 mg/dL (0.5-1.5); HEMATOCRIT 28.4 % (42-54); LYMPHOCYTES % (AUTO) 3.2 % (21.0-51.0); MEAN CORPUSCULAR HEMOGLOBIN 29.8 pg (27.0-33.0); MEAN CORPUSCULAR HGB CONC 28.9 g/dL (32.0-36.0); MEAN CORPUSCULAR VOLUME 103.3 fL (79-99); MONOCYTES % (AUTO) 1.5 % (3.0-13.0); PLATELET COUNT (AUTO) 473 K/uL (130-400); POTASSIUM 3.6 mmol/L (3.5-5.1); RED BLOOD CELL COUNT(AUTO) 2.75 MIL/uL (4.50-6.20); RED CELL DISTRIBUTION WIDTH 16.6 % (11.0-15.5); WHITE BLOOD COUNT (AUTO) 19.3 K/uL (4.8-10.8)
[2020-12-24] MEDS: MIDODRINE HCL 5 MG TABLET GT SCH ×3 (08:42→21:18)
[2020-12-24] MEDS: PANTOPRAZOLE 40 MG/VIAL IVP SCH ×2 (08:42→21:18)
[2020-12-24] MEDS: BIOTENE 44.3 ML SOLUTION MM SCH ×2 (08:42→20:23)
[2020-12-24] MEDS: DEXAMETHASONE SOD PHOSPHATE 4 MG/ML 1ML VIAL IVP SCH (08:42)
[2020-12-24] MEDS: FLUCONAZOLE 200 MG/NS 100 ML 100 ML IV SCH (08:42)
[2020-12-24] MEDS: ENOXAPARIN SODIUM 40 MG/0.4 ML SYRINGE SQ SCH (08:43)
[2020-12-24] MEDS: BALSAM PERU/CASTOR OIL 60 GM TUBE TP SCH ×3 (08:44→20:23)
[2020-12-24 09:41] LABS: ABG HCO3 40.2 mmol/L (21.0-28.0); ABG OXYGEN SATURATION 88.3 % (95.0-99.0); ABG PCO2 75 mmHg (35-48)
[2020-12-24] MEDS ORDERED: ALTEPLASE 2MG VIAL 2 MG/VIAL VIAL IVCATH SCH (12:30)
[2020-12-24] MEDS: ALBUMIN (HUMAN) 25% 50 ML IV SCH ×2 (14:35→22:39)
[2020-12-24] MEDS: FUROSEMIDE 100MG VIAL IVP SCH ×2 (14:36→22:37)
[2020-12-24] MEDS: MIDAZOLAM 100MG-0.9% NS 100ML 100 ML IV SCH (14:37)
[2020-12-24] MEDS ORDERED: FENTANYL 2500MCG+NS 250ML 250 ML IV ONE (16:19)
[2020-12-24] MEDS: INSULIN REGULAR, HUMAN 3ML 100 UNIT in 0.9%NACL 100ML 99 ML IV PRN ×2 (17:42)
[2020-12-24] MEDS ORDERED: FENTANYL CITRATE PF 0.05 MG/ML 1,000 MCG in 0.9%NACL 100ML 100 ML IVPB SCH (17:45)
[2020-12-24] MEDS ORDERED: FENTANYL 2500MCG+NS 250ML 250 ML IV SCH (17:45)
[2020-12-25] VITALS (54 sets, daily range): BP systolic 77–131; BP diastolic 45–74
[2020-12-25] MEDS: SUCRALFATE 1 GM TABLET NG SCH ×4 (00:24→17:13)
[2020-12-25] MEDS: VANCOMYCIN 750MG + NS 250 ML IV SCH ×6 (01:00→21:03)
[2020-12-25] MEDS: PHENYLEPHRINE HCL 50 MG in 0.9% NACL 250ML 250 ML IV PRN ×3 (03:31→18:09)
[2020-12-25] MEDS: MEROPENEM 1 GM VIAL IVP SCH ×3 (03:37→17:15)
[2020-12-25] MEDS: FUROSEMIDE 100MG VIAL IVP SCH (05:48)
[2020-12-25] MEDS: ALBUMIN (HUMAN) 25% 50 ML IV SCH (05:48)
[2020-12-25 08:04] LABS: ABG BASE EXCESS 19.1 mmol/L (-2.0-3.0); ABG HCO3 46.4 mmol/L (21.0-28.0); ABG PCO2 74 mmHg (35-48)
[2020-12-25] MEDS: MIDODRINE HCL 5 MG TABLET GT SCH ×3 (08:13→21:03)
[2020-12-25] MEDS: FLUCONAZOLE 200 MG/NS 100 ML 100 ML IV SCH (08:13)
[2020-12-25] MEDS: DEXAMETHASONE SOD PHOSPHATE 4 MG/ML 1ML VIAL IVP SCH (08:13)
[2020-12-25] MEDS: ENOXAPARIN SODIUM 40 MG/0.4 ML SYRINGE SQ SCH (08:14)
[2020-12-25] MEDS: PANTOPRAZOLE 40 MG/VIAL IVP SCH (08:14)
[2020-12-25] MEDS: BIOTENE 44.3 ML SOLUTION MM SCH ×2 (08:15→21:03)
[2020-12-25] MEDS: BALSAM PERU/CASTOR OIL 60 GM TUBE TP SCH ×3 (08:15→21:03)
[2020-12-25 08:59] LABS: BASOPHILS % (AUTO) 0.1 % (0.0-5.0); HEMATOCRIT 39.4 % (42-54); LYMPHOCYTES % (AUTO) 1.8 % (21.0-51.0); MEAN CORPUSCULAR HEMOGLOBIN 30.6 pg (27.0-33.0); MEAN CORPUSCULAR HGB CONC 30.2 g/dL (32.0-36.0); MEAN CORPUSCULAR VOLUME 101.3 fL (79-99); MONOCYTES % (AUTO) 1.5 % (3.0-13.0); NEUTROPHILS % (AUTO) 96.1 % (40.0-77.0); NUCLEATED RED BLOOD CELLS 0.3 % (0.0-0.19); PLATELET COUNT (AUTO) 288 K/uL (130-400); RED BLOOD CELL COUNT(AUTO) 3.89 MIL/uL (4.50-6.20); RED CELL DISTRIBUTION WIDTH 17.3 % (11.0-15.5); WHITE BLOOD COUNT (AUTO) 10.8 K/uL (4.8-10.8)
[2020-12-25 09:11] LABS: CREATININE 0.4 mg/dL (0.5-1.5); CRP QUANTITATIVE 83.3 mg/L (0.00-9.0); POTASSIUM 3.1 mmol/L (3.5-5.1)
[2020-12-25] MEDS: MIDAZOLAM 100MG-0.9% NS 100ML 100 ML IV SCH (10:05)
[2020-12-25] MEDS ORDERED: LIDOCAINE HCL-MPF 1% 2ML VIAL IV PRN (10:15)
[2020-12-25] MEDS: POTASSIUM CHLORIDE 20MEQ/100ML 100 ML IV PRN ×2 (11:50→12:52)
[2020-12-26] VITALS (60 sets, daily range): BP systolic 75–137; BP diastolic 45–86
[2020-12-26] MEDS: SUCRALFATE 1 GM TABLET NG SCH ×3 (00:02→11:28)
[2020-12-26] MEDS: MEROPENEM 1 GM VIAL IVP SCH ×2 (02:16→08:51)
[2020-12-26] MEDS: NOREPINEPHRIN 4MG/NS 250ML 250 ML IV SCH (02:16)
[2020-12-26 04:26] LABS: BASOPHILS % (AUTO) 0.1 % (0.0-5.0); HEMATOCRIT 29.8 % (42-54); LYMPHOCYTES % (AUTO) 1.7 % (21.0-51.0); MEAN CORPUSCULAR HEMOGLOBIN 29.9 pg (27.0-33.0); MEAN CORPUSCULAR HGB CONC 29.5 g/dL (32.0-36.0); MEAN CORPUSCULAR VOLUME 101.4 fL (79-99); NEUTROPHILS % (AUTO) 95.3 % (40.0-77.0); PLATELET COUNT (AUTO) 549 K/uL (130-400); RED BLOOD CELL COUNT(AUTO) 2.94 MIL/uL (4.50-6.20); RED CELL DISTRIBUTION WIDTH 16.8 % (11.0-15.5); WHITE BLOOD COUNT (AUTO) 18.4 K/uL (4.8-10.8)
[2020-12-26 04:51] LABS: ALBUMIN 1.9 g/dL (3.5-5.0); BILIRUBIN,TOTAL 0.3 mg/dL (0.2-1.0); CREATININE 0.3 mg/dL (0.5-1.5); MAGNESIUM 1.8 mg/dL (1.80-2.40); PHOSPHORUS 2.7 mg/dL (2.5-4.9); POTASSIUM 4.1 mmol/L (3.5-5.1); TOTAL PROTEIN, SERUM 5.5 g/dL (6.0-8.3)
[2020-12-26] MEDS: VANCOMYCIN 750MG + NS 250 ML IV SCH ×6 (05:13→14:00)
[2020-12-26] MEDS: DEXAMETHASONE SOD PHOSPHATE 4 MG/ML 1ML VIAL IVP SCH (08:14)
[2020-12-26] MEDS: MIDODRINE HCL 5 MG TABLET GT SCH ×2 (08:14→13:55)
[2020-12-26] MEDS: FLUCONAZOLE 200 MG/NS 100 ML 100 ML IV SCH (08:14)
[2020-12-26] MEDS: BALSAM PERU/CASTOR OIL 60 GM TUBE TP SCH ×2 (08:16→13:53)
[2020-12-26] MEDS: BIOTENE 44.3 ML SOLUTION MM SCH (08:16)
[2020-12-26] MEDS: ENOXAPARIN SODIUM 40 MG/0.4 ML SYRINGE SQ SCH (08:16)
[2020-12-26] MEDS: MIDAZOLAM 100MG-0.9% NS 100ML 100 ML IV SCH (08:50)
[2020-12-26 09:20] LABS: ABG BASE EXCESS 13.4 mmol/L (-2.0-3.0); ABG HCO3 45.8 mmol/L (21.0-28.0); ABG OXYGEN SATURATION 89.9 % (95.0-99.0); ABG PCO2 105 mmHg (35-48)
[2020-12-26] MEDS ORDERED: PROPOFOL 1000 MG/100 ML IV SCH (10:30)
[2020-12-26] MEDS: PROPOFOL 1000 MG/100 ML 100 ML IV SCH (10:48)
[2020-12-26] MEDS ORDERED: PROPOFOL 1000 MG/100 ML 100 ML IV PRN (11:15)
[2020-12-26 11:42] LABS: ABG BASE EXCESS 16.6 mmol/L (-2.0-3.0); ABG HCO3 47.1 mmol/L (21.0-28.0); ABG OXYGEN SATURATION 95.4 % (95.0-99.0); ABG PCO2 86 mmHg (35-48)
[2020-12-26] MEDS ORDERED: LORAZEPAM 2 MG/ML 1 ML VIAL IVP PRN (16:30)
[2020-12-26] MEDS ORDERED: GLYCOPYRROLATE 1 MG/5 ML SYRINGE IV PRN (16:30)
[2020-12-26] MEDS ORDERED: MORPHINE 4 MG SYG IV PRN (16:30)
[2020-12-27] MEDS ORDERED: DEXAMETHASONE SOD PHOSPHATE 4 MG/ML 1ML VIAL IV SCH (09:00)
== END 2020-12-26 23:29 | disposition expired | DRG 207 ==
LOC: EDH 12:07 → EDHIP 12:08 → 2BH 11-11 20:25 → 2CV 12-11 19:35
PROVIDERS: ADMIT Internal Medicine; ATTEND Internal Medicine
PROC: XW033E5 Introduction of Remdesivir Anti-infective into Peripheral Vein, Percutaneous Approach, New Technology Group 5 (ICD-10-PCS; 2020-11-11)
PROC: 5A09357 Assistance with Respiratory Ventilation, Less than 24 Consecutive Hours, Continuous Positive Airway Pressure (ICD-10-PCS; 2020-11-11)
PROC: 5A1955Z Respiratory Ventilation, Greater than 96 Consecutive Hours (ICD-10-PCS; principal; 2020-11-13)
PROC: XW13325 Transfusion of Convalescent Plasma (Nonautologous) into Peripheral Vein, Percutaneous Approach, New Technology Group 5 (ICD-10-PCS; 2020-11-13)
PROC: 5A09357 Assistance with Respiratory Ventilation, Less than 24 Consecutive Hours, Continuous Positive Airway Pressure (ICD-10-PCS; 2020-11-14)
PROC: 5A09357 Assistance with Respiratory Ventilation, Less than 24 Consecutive Hours, Continuous Positive Airway Pressure (ICD-10-PCS; 2020-11-19)
PROC: 5A09357 Assistance with Respiratory Ventilation, Less than 24 Consecutive Hours, Continuous Positive Airway Pressure (ICD-10-PCS; 2020-11-20)
PROC: 5A09457 Assistance with Respiratory Ventilation, 24-96 Consecutive Hours, Continuous Positive Airway Pressure (ICD-10-PCS; 2020-11-20)
PROC: 5A09357 Assistance with Respiratory Ventilation, Less than 24 Consecutive Hours, Continuous Positive Airway Pressure (ICD-10-PCS; 2020-11-25)
PROC: 5A0935A Assistance with Respiratory Ventilation, Less than 24 Consecutive Hours, High Flow/Velocity Cannula (ICD-10-PCS; 2020-11-25)
PROC: 5A09557 Assistance with Respiratory Ventilation, Greater than 96 Consecutive Hours, Continuous Positive Airway Pressure (ICD-10-PCS; 2020-11-26)
PROC: 0BH17EZ Insertion of Endotracheal Airway into Trachea, Via Natural or Artificial Opening (ICD-10-PCS; 2020-12-07)
PROC: 5A1955Z Respiratory Ventilation, Greater than 96 Consecutive Hours (ICD-10-PCS; 2020-12-07)
PROC: 0B9H8ZX Drainage of Lung Lingula, Via Natural or Artificial Opening Endoscopic, Diagnostic (ICD-10-PCS; 2020-12-13)
PROC: 0B9C8ZX Drainage of Right Upper Lung Lobe, Via Natural or Artificial Opening Endoscopic, Diagnostic (ICD-10-PCS; 2020-12-13)
PROC: 0B9G8ZX Drainage of Left Upper Lung Lobe, Via Natural or Artificial Opening Endoscopic, Diagnostic (ICD-10-PCS; 2020-12-13)
DX: U07.1 COVID-19 (principal); E11.10 Type 2 diabetes mellitus with ketoacidosis without coma; J96.01 Acute respiratory failure with hypoxia; J12.82 Pneumonia due to coronavirus disease 2019; R65.21 Severe sepsis with septic shock; J15.9 Unspecified bacterial pneumonia; E87.0 Hyperosmolality and hypernatremia; E87.1 Hypo-osmolality and hyponatremia; B49 Unspecified mycosis; E44.0 Moderate protein-calorie malnutrition; B44.9 Aspergillosis, unspecified; G93.40 Encephalopathy, unspecified; I82.622 Acute embolism and thrombosis of deep veins of left upper extremity; J93.83 Other pneumothorax; N39.0 Urinary tract infection, site not specified; T79.7XXA Traumatic subcutaneous emphysema, initial encounter; G62.9 Polyneuropathy, unspecified; T38.0X5A Adverse effect of glucocorticoids and synthetic analogues, initial encounter; Z68.28 Body mass index [BMI] 28.0-28.9, adult; I10 Essential (primary) hypertension; L89.622 Pressure ulcer of left heel, stage 2; E86.0 Dehydration; E78.5 Hyperlipidemia, unspecified; E87.6 Hypokalemia; B95.2 Enterococcus as the cause of diseases classified elsewhere; B96.89 Other specified bacterial agents as the cause of diseases classified elsewhere; D64.9 Anemia, unspecified; D69.6 Thrombocytopenia, unspecified; E66.9 Obesity, unspecified; E86.1 Hypovolemia; G83.9 Paralytic syndrome, unspecified; K12.30 Oral mucositis (ulcerative), unspecified; L89.152 Pressure ulcer of sacral region, stage 2; L89.819 Pressure ulcer of head, unspecified stage; N19 Unspecified kidney failure; Z66 Do not resuscitate; Z74.01 Bed confinement status; Y92.89 Other specified places as the place of occurrence of the external cause; Z88.0 Allergy status to penicillin; Z79.84 Long term (current) use of oral hypoglycemic drugs; Z83.3 Family history of diabetes mellitus
CPT/HCPCS: 31500; 36415; 36430; 36600; 71045; 80048; 80053; 80076; 80202; 81001; 82010; 82270; 82435; 82550; 82728; 82803; 82947; 82948; 83036; 83605; 83615; 83735; 83880; 84100; 84132; 84145; 84295; 84443; 84478; 84484; 85018; 85025; 85378; 85610; 85651; 85730; 86140; 86606; 86900; 86901; 86927; 87040; 87071; 87077; 87088; 87101; 87116; 87186; 87205; 87206; 87426; 87804; 87880; 93005; 93970; 93971; 94002; 94003; 94660; 99291; C1751; C1894; C9113; G0378; J0696; J1100; J1120; J1450; J1644; J1650; J1815; J1940; J1956; J2060; J2185; J2248; J2270; J2370; J2704; J2930; J2997; J3010; J3370; J3475; J3480; J3490; J7040; J7050; J7070; J7120; P9046; P9047; U0003